=== PATIENT | male | born 1940 | race Caucasian/White ===

== ENCOUNTER 2017-12-17 13:17 | Inpatient (IN) | payer MEDICARE ==
[~2017-12-17] VITALS: Ht 167.6 cm; Wt 68.2 kg
[2017-12-17] MEDS ORDERED: NS IV 500 ML 500 ML IV ONE (13:30)
[2017-12-17 13:44] LABS: BASOPHILS # (AUTO) 0.1 10^3/uL (0.0-0.1); BASOPHILS % (AUTO) 0 % (0-10); EOSINOPHILS # (AUTO) 0.1 10^3/uL (0.0-0.3); EOSINOPHILS % (AUTO) 0 % (0-10); HEMATOCRIT 39 % (40-54); HEMOGLOBIN 13.9 G/DL (13.3-17.7); LYMPHOCYTES # (AUTO) 3.8 X 10^3 (1.0-4.0); LYMPHOCYTES % (AUTO) 10 % (12-44); MEAN CORPUSCULAR HEMOGLOBIN 30 PG (25-34); MEAN CORPUSCULAR HGB CONC 36 G/DL (32-36); MEAN CORPUSCULAR VOLUME 85 FL (80-99); MEAN PLATELET VOLUME 11.4 FL (7.4-10.4); MONOCYTES # (AUTO) 17.5 X 10^3 (0.0-1.0); MONOCYTES % (AUTO) 45 % (0-12); NEUTROPHILS # (AUTO) 17.7 X 10^3 (1.8-7.8); NEUTROPHILS % (AUTO) 45 % (42-75); PLATELET COUNT 498 10^3/uL (130-400); RED BLOOD COUNT 4.62 10^6/uL (4.35-5.85); RED CELL DISTRIBUTION WIDTH 14.6 % (10.0-14.5)
[2017-12-17 13:45] LABS: WHITE BLOOD COUNT 39.3 10^3/uL (4.3-11.0)
[2017-12-17] MEDS ORDERED: RT-ALBUTEROL/IPRATROPIUM 3 ML (DUONEB) VIAL INH ONE (13:45)
[2017-12-17] MEDS ORDERED: METF500T5 PO (13:46)
[2017-12-17] MEDS ORDERED: INSU100I10 SQ (13:46)
[2017-12-17] MEDS ORDERED: PIOG45TA65 PO (13:46)
[2017-12-17] MEDS ORDERED: GLIM4TAB PO (13:46)
[2017-12-17] MEDS ORDERED: ONDA4TAB11 PO (13:46)
[2017-12-17] MEDS ORDERED: FLUT16SP22 (13:46)
[2017-12-17] MEDS ORDERED: MELO15TA39 (13:46)
[2017-12-17] MEDS ORDERED: TRAM50TA2 (13:46)
[2017-12-17 13:58] LABS: BAND NEUTROPHILS 11 %; LYMPHOCYTES % (MANUAL) 4 %; MONOCYTES % (MANUAL) 41 %; NEUTROPHILS % (MANUAL) 44 %; RBC MORPH NORMAL
[2017-12-17 14:02] LABS: ALANINE AMINOTRANSFERASE 8 U/L (0-55); ALKALINE PHOSPHATASE 97 U/L (40-136); BILIRUBIN,TOTAL 0.5 MG/DL (0.1-1.0); BUN/CREATININE RATIO 20; CALCIUM 9.8 MG/DL (8.5-10.1); CARBON DIOXIDE 25 MMOL/L (21-32); CHLORIDE 94 MMOL/L (98-107); CREATININE SERUM 1.08 MG/DL (0.60-1.30); GFR ESTIMATED > 60; GLUCOSE 280 MG/DL (70-105); POTASSIUM 3.9 MMOL/L (3.6-5.0); SODIUM 133 MMOL/L (135-145); TOTAL PROTEIN 8.1 GM/DL (6.4-8.2)
--- NOTE | 2017-12-17 14:05 | Diagnostic Imaging Report ---
INDICATION: Shortness of breath. COMPARISON: None. FINDINGS: Single view of the chest demonstrates mass infiltrate in the right hilum. Left lung is clear. The heart is prominent without pulmonary edema. There is no pneumothorax. Osseous structures are age-appropriate. IMPRESSION: Mass/infiltrate right hilum. CT chest recommended for further evaluation. Dictated by: Dictated on workstation # [id number]
--- NOTE | 2017-12-17 14:09 | ED Respiratory ---
General Chief Complaint: Respiratory Problems Stated Complaint: SOB, RATTLE IN CHEST, Nursing Triage Note: ARRIVED VIA AMB TO ROOM 03 WITH FAMILY WITHOUT DIFFIUCLTY. PT HAS HAD SOME DIFFICULTY CLEARING HIS THROAT IN THE MORNINGS BUT TODAY HE WOKE UP SOA AND UNABLE TO CLEAR HIS THROAT. Source: patient Exam Limitations: no limitations History of Present Illness Date Seen by Provider: Dec 17, 2017 Time Seen by Provider: 13:25 Initial Comments Here with report of difficulty breathing. States he is having difficulty clearing his throat and woke up short of air this morning. This is not typical for him. He does have some problems with clearing his throat but usually is always able to clear it. Today he has been unable to do so. He arrives with multiple family members. His daughter, who is a nurse, explains that the patient has been in the process of her workup for elevated white blood cell count. They are not sure what that is related to. He has had bone marrow biopsy. Timing/Duration: this morning, getting worse Severity: moderate Prior Episodes/Possible Cause: no prior episodes Modifying Factors: Worse With Activity; Improves With Oxygen, Improves With Rest Associated Symptoms: No chest pain/soreness; cough; No dizziness, No fever/ chills; shortness of breath; No sinus infection; wheezing Allergies and Home Medications Allergies Coded Allergies: No Known Drug Allergies (Unverified , 12/17/17) Patient Home Medication List Home Medication List Reviewed: Yes Review of Systems Constitutional: see HPI; No chills, No fever EENTM: no symptoms reported Respiratory: no symptoms reported Cardiovascular: No chest pain, No edema Gastrointestinal: No abdominal pain, No nausea, No vomiting Genitourinary: no symptoms reported Musculoskeletal: no symptoms reported Skin: no symptoms reported All Other Systems Reviewed Negative Unless Noted: Yes Past Jdvthxy-Ogglvq-Jsqcxi Hx Past Med/Social Hx: Reviewed Nursing Past Med/Soc Hx Patient Social History Alcohol Use: Denies Use Recreational Drug Use: No Smoking Status: Former Smoker Recent Foreign Travel: No Contact w/Someone Who Travel: No Recent Infectious Disease Expo: No Recent Hopitalizations: No Past Medical History Surgeries: No Respiratory: No Cardiac: Yes High Cholesterol Neurological: No Genitourinary: No Gastrointestinal: No Musculoskeletal: No Endocrine: Yes Diabetes, Insulin dep HEENT: No Cancer: No Integumentary: No Blood Disorders: Yes (HIGH WBC ET SEEING DR ELIAS FOR) Family Medical History Reviewed Nursing Family Hx Physical Exam Vital Signs Vital Signs - First Documented 12/17/17 12/17/17 13:17 13:30 Temp 97.1 Pulse 108 Resp 20 B/P (MAP) 157/98 (117) Pulse Ox 89 O2 Delivery Room Air O2 Flow Rate 2.00 Capillary Refill : Less Than 3 Seconds General Appearance: WD/WN, no apparent distress HEENT: PERRL/EOMI, pharynx normal Neck: full range of motion, supple Respiratory: decreased breath sounds, crackles, wheezing Cardiovascular: no murmur, tachycardia Gastrointestinal: non tender, soft Extremities: non-tender, normal inspection Neurologic/Psychiatric: alert, oriented x 3 Skin: normal color, warm/dry Focused Exam Lactate Level 12/17/17 13:30: Lactic Acid Level 1.70 Lactic Acid Level Laboratory Tests Test 12/17/17 13:30 Lactic Acid Level 1.70 MMOL/L (0.50-2.00) Progress/Results/Core Measures Suspected Sepsis Recent Fever Within 48 Hours: No Infection Criteria Present: Suspected New Infection New/Unexplained Altered Menta: No Sepsis Screen: No Definite Risk SIRS Temperature:97.1 Pulse: 108 Respiratory Rate: 20 Laboratory Tests 12/17/17 13:30: White Blood Count 39.3*H Blood Pressure 157 /98 Mean: 117 12/17/17 13:30: Lactic Acid Level 1.70 Laboratory Tests 12/17/17 13:30: Creatinine 1.08, INR Comment 1.1, Platelet Count 498H, Total Bilirubin 0.5 Results/Orders Lab Results Laboratory Tests Test 12/17/17 13:30 12/17/17 14:08 Range/Units White Blood Count 39.3 *H 4.3-11.0 10^3/uL Red Blood Count 4.62 4.35-5.85 10^6/uL Hemoglobin 13.9 13.3-17.7 G/DL Hematocrit 39 L 40-54 % Mean Corpuscular Volume 85 80-99 FL Mean Corpuscular Hemoglobin 30 25-34 PG Mean Corpuscular Hemoglobin Concent 36 32-36 G/DL Red Cell Distribution Width 14.6 H 10.0-14.5 % Platelet Count 498 H 130-400 10^3/uL Mean Platelet Volume 11.4 H 7.4-10.4 FL Neutrophils (%) (Auto) 45 42-75 % Lymphocytes (%) (Auto) 10 L 12-44 % Monocytes (%) (Auto) 45 H 0-12 % Eosinophils (%) (Auto) 0 0-10 % Basophils (%) (Auto) 0 0-10 % Neutrophils # (Auto) 17.7 H 1.8-7.8 X 10^3 Lymphocytes # (Auto) 3.8 1.0-4.0 X 10^3 Monocytes # (Auto) 17.5 H 0.0-1.0 X 10^3 Eosinophils # (Auto) 0.1 0.0-0.3 10^3/uL Basophils # (Auto) 0.1 0.0-0.1 10^3/uL Neutrophils % (Manual) 44 % Lymphocytes % (Manual) 4 % Monocytes % (Manual) 41 % Band Neutrophils 11 % Blood Morphology Comment NORMAL Prothrombin Time 14.3 12.2-14.7 SEC INR Comment 1.1 0.8-1.4 Activated Partial Thromboplast Time 46 H 24-35 SEC D-Dimer 1.63 H 0.00-0.49 UG/ML Sodium Level 133 L 135-145 MMOL/L Potassium Level 3.9 3.6-5.0 MMOL/L Chloride Level 94 L 98-107 MMOL/L Carbon Dioxide Level 25 21-32 MMOL/L Anion Gap 14 5-14 MMOL/L Blood Urea Nitrogen 22 H 7-18 MG/DL Creatinine 1.08 0.60-1.30 MG/DL Estimat Glomerular Filtration Rate > 60 BUN/Creatinine Ratio 20 Glucose Level 280 H 70-105 MG/DL Lactic Acid Level 1.70 0.50-2.00 MMOL/L Calcium Level 9.8 8.5-10.1 MG/DL Total Bilirubin 0.5 0.1-1.0 MG/DL Aspartate Amino Transf (AST/SGOT) 22 5-34 U/L Alanine Aminotransferase (ALT/SGPT) 8 0-55 U/L Alkaline Phosphatase 97 40-136 U/L Troponin I < 0.30 <0.30 NG/ML Total Protein 8.1 6.4-8.2 GM/DL Albumin 4.0 3.2-4.5 GM/DL Blood Gas Puncture Site R BRACHIAL Blood Gas Patient Temperature 96.9 Arterial Blood pH 7.41 7.37-7.43 Arterial Blood Partial Pressure CO2 42 35-45 MMHG Arterial Blood Partial Pressure O2 64 L 79-93 MMHG Arterial Blood HCO3 26 23-27 MMOL/L Arterial Blood Total CO2 27.5 21.0-31.0 MMOL/L Arterial Blood Oxygen Saturation 93 L 94-100 % Arterial Blood Base Excess 1.8 -2.5-2.5 MMOL/L South Test POSITIVE Blood Gas Ventilator Setting NO Blood Gas Inspired Oxygen 3 My Orders Orders - JERROD YOUNG MD Cbc With Automated Diff (12/17/17 13:30) Comprehensive Metabolic Panel (12/17/17 13:30) Lactic Acid Analyzer (12/17/17 13:30) Blood Culture (12/17/17 13:30) Sputum Culture (12/17/17 13:30) Protime With Inr (12/17/17 13:30) Partial Thromboplastin Time (12/17/17 13:30) Chest 1 View, Ap/Pa Only (12/17/17 13:30) O2 (12/17/17 13:30) Saline Lock/Iv-Start (12/17/17 13:30) Ekg Tracing (12/17/17 13:30) Troponin I (12/17/17 13:30) Vital Signs Adult Sepsis Patie Q15M (12/17/17 13:30) Remove Rings In Anticipation O (12/17/17 13:30) Fibrin Degradation Products (12/17/17 13:30) Saline Lock/Iv-Start (12/17/17 13:30) Ns Iv 500 Ml (Sodium Chloride 0.9%) (12/17/17 13:30) Albuterol/Ipra Inhalation Soln (Duoneb I (12/17/17 13:45) Svn Small Volume Nebulizer (12/17/17 13:37) Manual Differential (12/17/17 13:30) Arterial Blood Gas (12/17/17 14:09) Ct Angio Chest W (12/17/17 14:12) Iohexol Injection (Omnipaque 350 Mg/Ml 1 (12/17/17 14:15) Ns (Ivpb) (Sodium Chloride 0.9% Ivpb Bag (12/17/17 14:15) Arterial Blood Draw (12/17/17 ) Dexamethasone Injection (Decadron Inject (12/17/17 15:45) Piperacillin/Tazobactam (Zosyn Vial) (12/17/17 15:45) Medications Given in ED Current Medications Medications Dose Ordered Sig/Teodoro Route Start Time Stop Time Status Last Admin Dose Admin Albuterol/ Ipratropium 3 ml ONCE ONCE INH 12/17/17 13:45 12/17/17 13:46 DC 12/17/17 13:53 3 ML Dexamethasone Sodium Phosphate 10 mg ONCE ONCE IV 12/17/17 15:45 12/17/17 15:46 DC 12/17/17 15:53 10 MG Iohexol 150 ml ONCE ONCE IV 12/17/17 14:15 12/17/17 14:17 DC 12/17/17 14:28 125 ML Piperacillin Sod/ Tazobactam Sod 3.375 gm/Dextrose 100 ml @ 200 mls/hr ONCE ONCE IV 12/17/17 15:45 12/17/17 16:14 12/17/17 15:53 200 MLS/HR Sodium Chloride 100 ml ONCE ONCE IV 12/17/17 14:15 12/17/17 14:17 DC 12/17/17 14:28 100 ML Sodium Chloride 500 ml @ 0 mls/hr Q0M ONCE IV 12/17/17 13:30 12/17/17 13:33 DC 12/17/17 13:58 500 MLS/HR Vital Signs/I&O 12/17/17 12/17/17 12/17/17 13:17 13:30 13:58 Temp 97.1 Pulse 108 Resp 20 B/P (MAP) 157/98 (117) Pulse Ox 89 92 O2 Delivery Room Air Nasal Cannula Nasal Cannula O2 Flow Rate 2.00 3.00 Capillary Refill : Less Than 3 Seconds Blood Pressure Mean: 117 Progress Note : Progress Note Seen and treated. IV, labs, EKG and chest x-ray ordered. Blood cultures and lactic acid ordered. Normal saline 500 mL bolus. Monitor patient. 1405: ABG ordered as patient still remains at 93-94 percent on 3 L. Patient does not normally take oxygen. Anticipate CT scan pending chemistries. 1520: CT angiogram of the chest was ordered and is complete. There is hilar mass is concerning for neoplasm with some evidence of possible infiltrate concerning for pneumonia. I did discuss this at length with the family. Patient will be admitted to the hospital for further evaluation and treatment. I did discuss the case with Dr. CAMPBELL at this time and he accepts patient for admission, inpatient status. We will initiate Decadron 10 mg IV now and continue this twice a day. Also will initiate antibiotic treatment with Zosyn 3.375 g IV. I did discuss the case with Dr. Dumont at 1528. He accepts patient in consult. We did discuss placements and patient will go to fourth floor at this time with anticipation of bronchoscopy early to mid week depending on patient's response to medications. I did discuss all findings concerns with full family that were available here at 1550. All questions answered. Patient to be admitted to [facility] unit. ECG Initial ECG Impression Date: Dec 17, 2017 Initial ECG Impression Time: 13:49 Initial ECG Rate: 103 Initial ECG Rhythm: S.Tach Comment Sinus tachycardia with left atrial abnormality. Left anterior fascicular block. No evidence of ST elevation NM. No previous Zamora comparison. Interpreted by me. Diagnostic Imaging Diagonstic Imaging: Xray Plain Films/CT/US/NM/MRI: chest Comments VIA [facility]. [place], [place] NAME: [facility] REC#: [id number] PT STATUS: REG ER : 1940 PHYSICIAN: JERROD YOUNG MD ADMIT DATE: 12/17/17/ER Draft Date of Exam:12/17/17 CHEST 1 VIEW, AP/PA ONLY INDICATION: Shortness of breath. COMPARISON: None. FINDINGS: Single view of the chest demonstrates mass infiltrate in the right hilum. Left lung is clear. The heart is prominent without pulmonary edema. There is no pneumothorax. Osseous structures are age-appropriate. IMPRESSION: Mass/infiltrate right hilum. CT chest recommended for further evaluation. Dictated on workstation # [id number] Dict: 12/17/17 1359 Trans: 12/17/17 1404 [id number] Interpreted by: MEKHI NICHOLSON Electronically signed by: Diagonstic Imaging: CT Plain Films/CT/US/NM/MRI: chest Comments NAME: JAIMIE [facility] REC#: [id number] PT STATUS: REG ER : 1940 PHYSICIAN: JERROD YOUNG MD ADMIT DATE: 12/17/17/ER Draft Date of Exam:12/17/17 CT ANGIO CHEST W PROCEDURE: CT angiography of the chest with contrast. TECHNIQUE: Multiple contiguous axial images were obtained through the chest after uneventful bolus administration of intravenous contrast. Reconstructed CTA MIP acquisitions were also performed. INDICATION: Cough, wheezing. COMPARISON: None. FINDINGS: There is a moderate-sized irregular spiculated mass in the right hilum which encases the right mainstem bronchus distally. There is some encasement of the lobar pulmonary arterial branches. Approximate size is 5 x 7 cm. There are few prominent lymph nodes in the mediastinum. The largest pretracheal node measuring 15 mm in cross-section. There are few tiny nodules in the right lung base which could be postobstructive. There is small effusion in the right lung base as well. The left lung is clear. There is no pneumothorax. There is no pulmonary embolism or acute aortic pathology. IMPRESSION: 1. 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 This may be biopsied bronchoscopically. 2. No pulmonary embolism identified. 3. Tiny nodules in the right lung base either neoplastic or secondary to postobstructive inflammation and/or pneumonia. Dictated on workstation # [id number] Dict: 12/17/17 1447 Trans: 12/17/17 1459 [id number] Interpreted by: MEKHI NICHOLSON Electronically signed by: Departure Communication (Admissions) Time/Spoke to Admitting Phy: 15:20 Time/Spoke to Consulting Phy: 15:28 Impression Primary Impression: Mass of right lung Additional Impression: Right middle lobe pneumonia Qualified Codes: J18.1 - Lobar pneumonia, unspecified organism Disposition: ADMITTED INPATIENT Condition: Stable Admissions Decision to Admit Reason: Admit from ER (General) Decision to Admit/Date: Dec 17, 2017 Time/Decision to Admit Time: 15:20 Departure-Patient Inst. Referrals: WAI HARMON DO (PCP) Primary Care Physician JERROD YOUNG MD Dec 17, 2017 14:09
[2017-12-17 14:15] LABS: ABG BASE EXCESS 1.8 MMOL/L (-2.5-2.5); ABG OXYGEN SATURATION 93 % (94-100); ABG PCO2 42 MMHG (35-45); ABG PH 7.41 (7.37-7.43); ABG PO2 64 MMHG (79-93); ABG TCO2 27.5 MMOL/L (21.0-31.0)
[2017-12-17] MEDS ORDERED: NS 100 ML (IVPB) BAG IV ONE (14:15)
[2017-12-17] MEDS ORDERED: IOHEXOL 350 MG/ML 150 ML (OMNIPAQUE 350) VIAL IV ONE (14:15)
[2017-12-17 14:16] LABS: ALLENS TEST POSITIVE; INSPIRED O2 3; PATIENT TEMP 96.9; VENTILATOR NO
[2017-12-17 14:40] LABS: FIBRIN DEGRADATION PRODUCTS 1.63 UG/ML (0.00-0.49); INR 1.1 (0.8-1.4); PROTHROMBIN TIME PATIENT 14.3 SEC (12.2-14.7)
--- NOTE | 2017-12-17 14:59 | Diagnostic Imaging Report ---
PROCEDURE: CT angiography of the chest with contrast. TECHNIQUE: Multiple contiguous axial images were obtained through the chest after uneventful bolus administration of intravenous contrast. Reconstructed CTA MIP acquisitions were also performed. INDICATION: Cough, wheezing. COMPARISON: None. FINDINGS: There is a moderate-sized irregular spiculated mass in the right hilum which encases the right mainstem bronchus distally. There is some encasement of the lobar pulmonary arterial branches. Approximate size is 5 x 7 cm. There are few prominent lymph nodes in the mediastinum. The largest pretracheal node measuring 15 mm in cross-section. There are few tiny nodules in the right lung base which could be postobstructive. There is small effusion in the right lung base as well. The left lung is clear. There is no pneumothorax. There is no pulmonary embolism or acute aortic pathology. IMPRESSION: 1. 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 This may be biopsied bronchoscopically. 2. No pulmonary embolism identified. 3. Tiny nodules in the right lung base either neoplastic or secondary to postobstructive inflammation and/or pneumonia. Dictated by: Dictated on workstation # [id number]
[2017-12-17] MEDS ORDERED: PIPERACILLIN/TAZOBACTAM 3.375 GM in D5W 100 ML IVPB 100 ML IV ONE (15:45)
[2017-12-17] MEDS ORDERED: DEXAMETHASONE 10 MG/ML (DECADRON) 1 ML VIAL IV ONE (15:45)
[2017-12-17 16:48] VITALS: BP 154/74
[2017-12-17] MEDS: NS IV 1000 ML 1,000 ML IV SCH (16:59)
[2017-12-17] MEDS ORDERED: ONDANSETRON 4 MG/2 ML (SDV) Z0FRAN IVP PRN (17:00)
--- NOTE | 2017-12-17 17:02 | Pulmonary Consultation ---
History of Present Illness History of Present Illness Date of Consultation 12/17/17 16:56 Time Seen by Provider: 16:56 Date of Admission History of Present Illness 77yo presented to ED secondary to worsening SOB waking him up from sleep, and nonproductive cough. No prior episodes like this in the past. No hemoptysis. PT has recently seen oncology secondary to leukocytosis and is s/p bone marrow bx. CT scan on admission shows large right hilar mass with mediastinal lymphadenopathy. Pt was placed on Zosyn and admitted to 4th floor. I am consulted for pulmonary management. Allergies and Home Medications Allergies Coded Allergies: No Known Drug Allergies (Unverified , 12/17/17) Home Medications Cetirizine HCl 10 Mg Tablet, 10 MG PO DAILY, (Reported) Fluticasone Propionate 16 Gm [place].susp, 2 SPRAYS NA DAILY, (Reported) Glimepiride 4 Mg Tablet, 4 MG PO DAILY, (Reported) Insulin Glargine,Hum.rec.anlog 100 Unit/1 Ml Insuln.pen, 12 UNITS SQ BID, ( Reported) Ketorolac Tromethamine 10 Mg Tablet, 10 MG PO Q6H PRN for PAIN-MILD TO MODERATE, (Reported) Metformin HCl 500 Mg Tablet, 1,000 MG PO BID, (Reported) Ondansetron 4 Mg Tab.rapdis, 4 MG PO Q8H PRN for NAUSEA/VOMITING-1ST LINE, ( Reported) Pioglitazone HCl 45 Mg Tablet, 45 MG PO DAILY, (Reported) Propylene Glycol/Peg 400/Pf 1 Each Droperette, 1 EACH OU DAILY PRN for DRY EYES, (Reported) Simvastatin 40 Mg Tablet, 40 MG PO HS, (Reported) Past Qenlapq-Ktjxwb-Kaduwj Hx Past Med/Social Hx: Reviewed Nursing Past Med/Soc Hx Patient Social History Alcohol Use: Denies Use Recreational Drug Use: No Smoking Status: Former Smoker Type Used: Cigarettes Former Smoker, Quit: Jun 20, 1997 Recent Foreign Travel: No Contact w/Someone Who Travel: No Recent Infectious Disease Expo: No Recent Hopitalizations: No Past Medical History Surgeries: No Respiratory: No Cardiac: Yes High Cholesterol Neurological: No Genitourinary: No Gastrointestinal: No Musculoskeletal: No Endocrine: Yes Diabetes, Insulin dep HEENT: No Cancer: No Integumentary: No Blood Disorders: Yes (HIGH WBC ET SEEING DR ELIAS FOR) Family Medical History Reviewed Nursing Family Hx Review of Systems Time Seen by Provider: 06:56 Constitutional: Fever, Chills, Sweats, Weakness, Malaise Eyes: No: Pain, Vision change, Conjunctivae inflammation, Eyelid inflammation, Other, Redness Respiratory: Cough, Dry, Shortness of breath, SOB with excertion Cardiovascular: Orthopnea, Paroxysmal Noc. Dyspnea, Lt Headedness Gastrointestinal: Constipation; No: Nausea, Vomiting, Abdominal Pain, Diarrhea , Melena, Hematochezia, Other Neurological: Weakness Exam Exam Vital Signs Date Time Temp Pulse Resp B/P (MAP) Pulse Ox O2 Delivery O2 Flow Rate FiO2 12/17/17 16:48 98.7 101 20 154/74 (100) 92 Nasal Cannula 4.00 12/17/17 16:14 88 16 133/82 94 Room Air 12/17/17 13:58 92 Nasal Cannula 3.00 12/17/17 13:30 Nasal Cannula 2.00 12/17/17 13:17 97.1 108 20 157/98 (117) 89 Room Air General Appearance: No Apparent Distress, Anxious HEENT: PERRL/EOMI, Pharynx Normal Neck: Full Range of Motion, Non Tender, Supple Respiratory: Chest Non Tender, No Respiratory Distress, Decreased Breath Sounds Cardiovascular: Regular Rate, Rhythm, No Edema, No Gallop Capillary Refill: Less Than 3 Seconds Gastrointestinal: non tender, soft Extremity: Normal Capillary Refill, Normal Inspection Neurologic/Psychiatric: Alert, Oriented x3 Skin: Normal Color, Warm/Dry Results Lab Laboratory Tests 12/17/17 13:30 Assessment/Plan Assessment/Plan Post obstructive pneumonia -Continue Zosyn -IVF -SVNS, oxygen Right hilar mass with MLA -Will plan for bronchoscopy with EBUS this week. SCOTTIE TOMLIN DO Dec 17, 2017 17:02
[2017-12-17] MEDS ORDERED: RT-ALBUTEROL/IPRATROPIUM 3 ML (DUONEB) VIAL INH SCH (17:15)
[2017-12-17] MEDS ORDERED: SIMV40TA4 PO (17:39)
[2017-12-17] MEDS ORDERED: EYEL1TOW2 TP (17:39)
[2017-12-17] MEDS ORDERED: CETI10TA20 PO (17:39)
[2017-12-17] MEDS ORDERED: PROP1DRO7 OU (17:48)
[2017-12-17] MEDS ORDERED: RT-ALBUTEROL/IPRATROPIUM 3 ML (DUONEB) VIAL ONE (18:36)
[2017-12-17] MEDS ORDERED: RT-ALBUTEROL/IPRATROPIUM 3 ML (DUONEB) VIAL INH PRN (19:00)
[2017-12-17] MEDS: RT-ALBUTEROL/IPRATROPIUM 3 ML (DUONEB) VIAL INH SCH (19:00)
[2017-12-17] MEDS ORDERED: inSUlin ASPART (NovoLOG) 1 UNIT/0.01 ML (CHARGE PER UNIT) SC SCH (19:30)
[2017-12-17] MEDS ORDERED: KETO10TA PO (19:36)
[2017-12-17 19:50] VITALS: BP 133/60
[2017-12-17] MEDS: fentaNYL INJECTION 100 MCG/2 ML AMP IVP PRN (19:56)
[2017-12-17] MEDS: DEXAMETHASONE 4 MG/ML SDV (DECADRON) IV SCH (21:18)
[2017-12-17] MEDS: PIPERACILLIN/TAZO 3.375 GM/D5W 100 ML IV SCH ×2 (21:18)
[2017-12-18 00:18] VITALS: BP 131/73
[2017-12-18] MEDS: RT-ALBUTEROL/IPRATROPIUM 3 ML (DUONEB) VIAL INH SCH ×4 (01:35→20:21)
[2017-12-18 04:31] VITALS: BP 129/64
[2017-12-18 05:15] LABS: BASOPHILS # (AUTO) 0.1 10^3/uL (0.0-0.1); BASOPHILS % (AUTO) 0 % (0-10); EOSINOPHILS % (AUTO) 0 % (0-10); HEMATOCRIT 34 % (40-54); HEMOGLOBIN 11.7 G/DL (13.3-17.7); LYMPHOCYTES # (AUTO) 1.5 X 10^3 (1.0-4.0); LYMPHOCYTES % (AUTO) 4 % (12-44); MEAN CORPUSCULAR HEMOGLOBIN 29 PG (25-34); MEAN CORPUSCULAR HGB CONC 35 G/DL (32-36); MEAN CORPUSCULAR VOLUME 85 FL (80-99); MEAN PLATELET VOLUME 11.4 FL (7.4-10.4); MONOCYTES % (AUTO) 23 % (0-12); NEUTROPHILS # (AUTO) 26.1 X 10^3 (1.8-7.8); NEUTROPHILS % (AUTO) 73 % (42-75); PLATELET COUNT 444 10^3/uL (130-400); RED BLOOD COUNT 4.01 10^6/uL (4.35-5.85); RED CELL DISTRIBUTION WIDTH 14.6 % (10.0-14.5)
[2017-12-18 05:19] LABS: WHITE BLOOD COUNT 35.6 10^3/uL (4.3-11.0)
[2017-12-18 05:38] LABS: ALANINE AMINOTRANSFERASE 6 U/L (0-55); ALBUMIN 3.3 GM/DL (3.2-4.5); ALKALINE PHOSPHATASE 73 U/L (40-136); BILIRUBIN,TOTAL 0.4 MG/DL (0.1-1.0); BUN/CREATININE RATIO 23; CALCIUM 8.5 MG/DL (8.5-10.1); CARBON DIOXIDE 21 MMOL/L (21-32); CHLORIDE 98 MMOL/L (98-107); CREATININE SERUM 0.96 MG/DL (0.60-1.30); GFR ESTIMATED > 60; GLUCOSE 375 MG/DL (70-105); POTASSIUM 4.5 MMOL/L (3.6-5.0); SODIUM 132 MMOL/L (135-145); TOTAL PROTEIN 6.3 GM/DL (6.4-8.2)
[2017-12-18] MEDS: PIPERACILLIN/TAZO 3.375 GM/D5W 100 ML IV SCH ×6 (05:45→21:17)
[2017-12-18] MEDS: NS IV 1000 ML 1,000 ML IV SCH ×2 (05:45→13:06)
[2017-12-18] MEDS: inSUlin ASPART (NovoLOG) 1 UNIT/0.01 ML (CHARGE PER UNIT) SC SCH ×4 (05:46→21:28)
[2017-12-18] MEDS: fentaNYL INJECTION 100 MCG/2 ML AMP IVP PRN (05:48)
[2017-12-18 08:00] VITALS: BP 128/61
[2017-12-18] MEDS: DEXAMETHASONE 4 MG/ML SDV (DECADRON) IV SCH ×2 (08:21→21:16)
--- NOTE | 2017-12-18 09:25 | Diagnostic Imaging Report ---
INDICATION: Pneumonia. Comparison made with prior examination from 12/17/2017. FINDINGS: There is cardiomegaly. There is a right hilar mass with some perihilar atelectasis and/or pneumonitis. There is no pleural effusion or pneumothorax. The mediastinum is unremarkable. IMPRESSION: Note is again made of right hilar mass with some right perihilar atelectasis and/or pneumonitis. Cardiomegaly. Dictated by: Dictated on workstation # [id number]
--- NOTE | 2017-12-18 10:36 | History & Physical-Hospitalist ---
History of Present Illness HPI/Chief Complaint CC: Fever with dyspnea HPI: This is a 77-year-old white male clinic patient of Dr. Garcia who presented to the ER with shortness of breath and decline status. He was recently seen by Dr. Wilkinson and a bone marrow biopsy was performed this past Tuesday due to severe leukocytosis of 35,000 and results are pending. He reports that he had had a cough from allergies but that had progressed to the point he was having difficulty breathing last night. Elevated d-dimer was noted on workup so CT angiogram of the chest showed right hilar mass with mediastinal nodes suspicious for neoplastic process. Dr. Dumont's been consulted and he will be performing a bronchoscopy to evaluate definitive source of the hilar mass. He reports that he had a left rotator cuff injury was seen by Dr. Fleming in October but then everything progressed on the workup revealing elevated leukocyte count and establishment with Dr. Wilkinson then it is progressed to the situation today. 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 Source: patient Exam Limitations: no limitations Date Seen 12/18/17 Time Seen by Provider: 10:00 Attending Physician Thomas Scott MD PCP No,Local Physician Referring Physician Date of Admission Dec 17, 2017 at 15:35 Home Medications & Allergies Home Medications Reviewed patient Home Medication Reconciliation performed by pharmacy medication reconciliations civil design technician and/or nursing. Patients Allergies have been reviewed. Allergies Allergies Coded Allergies No Known Drug Allergies (Unverified12/17/17) Past Raaoszm-Syqejy-Ixxhlu Hx Past Med/Social Hx: Reviewed Nursing Past Med/Soc Hx, Reviewed and Corrections made Patient Social History Marrital Status: Employed/Student: employed ([employer]) Alcohol Use: Denies Use Recreational Drug Use: No Smoking Status: Former Smoker Former Smoker, Quit: Jun 20, 1997 Type Used: Cigarettes Physical Abuse Screen: No Sexual Abuse: No Recent Foreign Travel: No Contact w/other who traveled: No Recent Hopitalizations: No Recent Infectious Disease Expo: No Seasonal Allergies Seasonal Allergies: Yes Past Medical History Cardiac: High Cholesterol Endocrine: Diabetes, Insulin dep Are Your Blood Sugars Over 250: No History of Blood Disorders: Yes (HIGH WBC ET SEEING DR WILKINSON FOR) Family History Reviewed Nursing Family Hx Diabetes mellitus 19 FATHER FH: colon cancer 19 MOTHER Myocardial infarction 19 FATHER Diabetes Review of Systems Constitutional: see HPI, dizziness, fever, malaise, weakness EENTM: no symptoms reported Respiratory: cough, dyspnea on exertion, short of breath, wheezing Cardiovascular: no symptoms reported Gastrointestinal: no symptoms reported Genitourinary: no symptoms reported Musculoskeletal: joint pain (left shoulder) Skin: no symptoms reported Psychiatric/Neurological: No Symptoms Reported All Other Systems Reviewed Negative Unless Noted: Yes Physical Exam Physical Exam Vital Signs Vital Signs - First Documented 12/17/17 12/17/17 13:17 13:30 Temp 97.1 Pulse 108 Resp 20 B/P (MAP) 157/98 (117) Pulse Ox 89 O2 Delivery Room Air O2 Flow Rate 2.00 Capillary Refill : Less Than 3 Seconds General Appearance: No Apparent Distress, WD/WN, Chronically ill Eyes: Bilateral Eye Normal Inspection, Bilateral Eye PERRL HEENT: PERRL/EOMI, Normal ENT Inspection, Pharynx Normal Neck: Full Range of Motion, Normal Inspection, Non Tender, Supple, Carotid Bruit Respiratory: Chest Non Tender, No Accessory Muscle Use, No Respiratory Distress , Crackles, Decreased Breath Sounds, Wheezing Cardiovascular: Regular Rate, Rhythm, No Edema, No Gallop, No JVD, No Murmur, Normal Peripheral Pulses Gastrointestinal: Normal Bowel Sounds, No Organomegaly, No Pulsatile Mass, Non Tender, Soft Back: Normal Inspection, No CVA Tenderness, No Vertebral Tenderness Extremity: Normal Capillary Refill, Normal Inspection, Normal Range of Motion, Non Tender, No Calf Tenderness, No Pedal Edema Neurologic/Psychiatric: Alert, Oriented x3, No Motor/Sensory Deficits, Normal Mood/Affect Skin: Normal Color, Warm/Dry Lymphatic: No Adenopathy Results Results/Procedures Labs Laboratory Tests 12/17/17 13:30 12/18/17 04:48 Patient resulted labs reviewed. Assessment/Plan Admission Diagnosis Right hilar mass with postobstructive pneumonia Severe leukocytosis status post bone marrow biopsy this past week by Dr. Mosquera Diabetes mellitus Admission Status: Inpatient Order (span 2 midnights) Reason for Inpatient Admission: Post obstructive pneumonia with elevated wbc will require at least 3 days inpt Assessment and Plan Monitor labs Maintain nebulizers and oxygen Maintain empiric antibiotics Appreciate Dr. Dumont consultation for bronchoscopy for biopsy of right hilar mass that appears to be suspicious for neoplastic process Home medication Pain control Diagnosis/Problems Diagnosis/Problems (1) Right middle lobe pneumonia Status: Acute Qualifiers: Pneumonia type: due to unspecified organism Qualified Codes: J18.1 - Lobar pneumonia, unspecified organism (2) Mass of right lung Status: Acute (3) Leukocytosis Status: Acute Assessment & Plan: s/p BM biopsy Dr Wilkinson this past week Qualifiers: Leukocytosis type: unspecified Qualified Codes: D72.829 - Elevated white blood cell count, unspecified (4) Diabetes mellitus Status: Chronic Qualifiers: Diabetes mellitus type: type 2 Diabetes mellitus long term care pharmacist insulin use: with custodial use Diabetes mellitus complication status: without complication Qualified Codes: E11.9 - Type 2 diabetes mellitus without complications; 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
[2017-12-18] MEDS ORDERED: ACETAMINOPHEN 500 MG TAB (TYLENOL) PO PRN (11:30)
[2017-12-18] MEDS ORDERED: ALPRAZolam 0.25 MG (XANAX) TAB PO PRN (11:30)
[2017-12-18] MEDS ORDERED: POLYETHYLENE GLYCOL 17 GM (MIRALAX) PACK PO PRN (11:30)
[2017-12-18] MEDS ORDERED: ONDANSETRON 4 MG (ZOFRAN) ORAL DISSOLVE TAB PO PRN (11:30)
[2017-12-18 12:00] VITALS: BP 145/67
[2017-12-18] MEDS ORDERED: ARTIFICAL TEARS 0.4 ML UNIT DOSE (REFRESH PLUS) OU PRN (12:30)
[2017-12-18 15:35] VITALS: BP 160/69
[2017-12-18] MEDS: IBUPROFEN 600 MG (MOTRIN) TAB PO PRN ×2 (15:57→21:15)
[2017-12-18] MEDS: HYDROcodone/APAP 5 MG/325 MG (LORTAB) TAB PO PRN ×2 (16:15→16:29)
[2017-12-18 19:55] VITALS: BP 121/56
[2017-12-18] MEDS: DOCUSATE SODIUM 100 MG (COLACE) CAP PO SCH (21:16)
[2017-12-18] MEDS: inSUlin DETERMIR 1 UNIT/0.01 ML (LEVEMIR) CHARGE PER UNIT SQ SCH (21:17)
[2017-12-19 00:35] VITALS: BP 123/58
[2017-12-19] MEDS: RT-ALBUTEROL/IPRATROPIUM 3 ML (DUONEB) VIAL INH SCH ×3 (01:30→14:56)
[2017-12-19 04:51] VITALS: BP 126/59
[2017-12-19 05:40] LABS: BASOPHILS # (AUTO) 0.1 10^3/uL (0.0-0.1); BASOPHILS % (AUTO) 0 % (0-10); EOSINOPHILS % (AUTO) 0 % (0-10); HEMATOCRIT 31 % (40-54); HEMOGLOBIN 10.6 G/DL (13.3-17.7); LYMPHOCYTES # (AUTO) 1.6 X 10^3 (1.0-4.0); LYMPHOCYTES % (AUTO) 5 % (12-44); MEAN CORPUSCULAR HEMOGLOBIN 29 PG (25-34); MEAN CORPUSCULAR HGB CONC 35 G/DL (32-36); MEAN CORPUSCULAR VOLUME 85 FL (80-99); MEAN PLATELET VOLUME 11.1 FL (7.4-10.4); MONOCYTES # (AUTO) 8.5 X 10^3 (0.0-1.0); MONOCYTES % (AUTO) 25 % (0-12); NEUTROPHILS # (AUTO) 24.2 X 10^3 (1.8-7.8); NEUTROPHILS % (AUTO) 71 % (42-75); PLATELET COUNT 399 10^3/uL (130-400); RED CELL DISTRIBUTION WIDTH 14.5 % (10.0-14.5)
[2017-12-19] MEDS: PIPERACILLIN/TAZO 3.375 GM/D5W 100 ML IV SCH ×4 (05:43→14:56)
[2017-12-19] MEDS: inSUlin ASPART (NovoLOG) 1 UNIT/0.01 ML (CHARGE PER UNIT) SC SCH ×3 (05:49→15:17)
[2017-12-19] MEDS: HYDROcodone/APAP 5 MG/325 MG (LORTAB) TAB PO PRN ×2 (05:49→12:29)
[2017-12-19 05:54] LABS: WHITE BLOOD COUNT 34.3 10^3/uL (4.3-11.0)
[2017-12-19 06:01] LABS: ALANINE AMINOTRANSFERASE 6 U/L (0-55); ALBUMIN 3.1 GM/DL (3.2-4.5); ALKALINE PHOSPHATASE 68 U/L (40-136); BILIRUBIN,TOTAL 0.4 MG/DL (0.1-1.0); BUN/CREATININE RATIO 21; CALCIUM 8.7 MG/DL (8.5-10.1); CARBON DIOXIDE 22 MMOL/L (21-32); CHLORIDE 102 MMOL/L (98-107); CREATININE SERUM 0.92 MG/DL (0.60-1.30); GFR ESTIMATED > 60; GLUCOSE 265 MG/DL (70-105); POTASSIUM 4.3 MMOL/L (3.6-5.0); SODIUM 135 MMOL/L (135-145)
[2017-12-19] MEDS ORDERED: GLIMEPIRIDE 4 MG (AMARYL) TAB PO SCH (06:30)
[2017-12-19 08:14] VITALS: BP 116/58
[2017-12-19] MEDS: DEXAMETHASONE 4 MG/ML SDV (DECADRON) IV SCH (08:49)
[2017-12-19] MEDS: DOCUSATE SODIUM 100 MG (COLACE) CAP PO SCH (08:51)
[2017-12-19] MEDS: inSUlin DETERMIR 1 UNIT/0.01 ML (LEVEMIR) CHARGE PER UNIT SQ SCH (08:51)
[2017-12-19] MEDS ORDERED: LORATADINE (CLARITIN) 10 MG TAB PO SCH (09:00)
[2017-12-19] MEDS ORDERED: FLUTICASONE NASAL SPRAY (FLONASE) 16 GM BTL NS SCH (09:00)
[2017-12-19] MEDS: NS IV 1000 ML 1,000 ML IV SCH (09:01)
[2017-12-19] MEDS ORDERED: PATIENT MAY USE OWN MED,SINGLE MED PO SCH (09:15)
--- NOTE | 2017-12-19 09:55 | Pulmonary Progress Note ---
Subjective Time Seen by Provider: 09:55 Subjective/Events-last exam PT appears to be doing better. NO productive cough Focused Exam Lactate Level 12/17/17 13:30: Lactic Acid Level 1.70 Exam Exam Vital Signs Date Time Temp Pulse Resp B/P (MAP) Pulse Ox O2 Delivery O2 Flow Rate FiO2 12/19/17 08:28 98 Nasal Cannula 4.00 12/19/17 08:14 98.9 84 18 116/58 (77) 99 Nasal Cannula 4.00 12/19/17 04:51 98.1 91 19 126/59 (81) 98 Nasal Cannula 4.00 12/19/17 01:30 95 Nasal Cannula 4.00 12/19/17 00:35 97.6 94 20 123/58 (79) 98 Nasal Cannula 4.00 12/18/17 21:24 Nasal Cannula 4.00 12/18/17 20:21 95 Nasal Cannula 4.00 12/18/17 19:55 98.9 90 20 121/56 (77) 97 Nasal Cannula 4.00 12/18/17 15:58 100.0 12/18/17 15:35 100.2 105 20 160/69 (99) 92 Nasal Cannula 4.00 12/18/17 15:24 92 Nasal Cannula 4.00 12/18/17 12:00 98.2 91 18 145/67 (93) 92 Nasal Cannula 4.00 I & O 12/19/17 07:00 Intake Total 1280 ml Balance 1280 ml General Appearance: No Apparent Distress, WD/WN, Chronically ill HEENT: PERRL/EOMI, Normal ENT Inspection, Pharynx Normal Neck: Full Range of Motion, Normal Inspection, Non Tender, Supple, Carotid Bruit Respiratory: Chest Non Tender, No Accessory Muscle Use, No Respiratory Distress , Crackles, Decreased Breath Sounds, Wheezing Cardiovascular: Regular Rate, Rhythm, No Edema, No Gallop, No JVD, No Murmur, Normal Peripheral Pulses Capillary Refill: Less Than 3 Seconds Gastrointestinal: non tender, soft Extremity: Normal Capillary Refill, Normal Inspection, Normal Range of Motion, Non Tender, No Calf Tenderness, No Pedal Edema Neurologic/Psychiatric: Alert, Oriented x3, No Motor/Sensory Deficits, Normal Mood/Affect Skin: Normal Color, Warm/Dry Lymphatic: No Adenopathy Results Lab Laboratory Tests 12/17/17 13:30 12/18/17 04:48 12/19/17 05:25 Assessment/Plan Assessment/Plan Right hilar mass with MLA - ? post obstructive pneumonia - doubt -Will plan for bronchoscopy with EBUS on Tuesday AM -Has been on Zosyn since admission Hypoxemia - currently on 4 liters of oxygen -pt will need home oxygen qualification Leukocytosis probably secondary to lymphoma -s/p bone marrow bx Will f/u with pt 1 wk after procedure. I discussed patient extensively with Dr. Scott, and endoscopy. Bronch is scheduled for Tuesday . I ok with patient's discharge and can do procedure as out patient. 30 min spent with patient, family and medical staff discussing details of plan of care. All questions answered. SCOTTIE TOMLIN DO Dec 19, 2017 09:55
[2017-12-19 12:00] VITALS: BP 132/62
--- NOTE | 2017-12-19 12:11 | Progress Note-Hospitalist ---
Progress Note Progress Notes/Assess & Plan Date Seen 12/19/17 Time Seen by Provider: 12:04 Assessment & Plan The patient is a 77-year-old white male who was admitted from the emergency room. The prompting complaint was increasing shortness of breath and weakness. It is known that he was discovered as an outpatient to have an elevated white blood count. He was referred to Dr. Wilkinson who performed a bone marrow biopsy. That and report is not available and is consistent with myelomonocytic leukemia. By the constancy of the white blood count at 35,000 I would guess this to be chronic. The bigger concern is the hilar mass seen on the CT scan of the chest. This is noted beginning just above the bifurcation of the trachea. There is a considerable mass noted especially beginning at the eve. This extends downward to just above the heart itself. Even at the level of the heart it appears that there is tumor mass in the prevertebral area I have discussed this with Dr. Dumont and he is planning a biopsy procedure for Tuesday. The CT scan was shown first to the patient and his and then his daughter and granddaughter arrived and as the daughter is Dr. Wilkins's nurse these were reviewed with her as well. Discussion ensued. Dr. Wilkinson is out of town until Tuesday of next week. I do not believe there is any solid evidence for a pneumonia and will discontinue the Decadron and the antibiotics. Dr. Dumont and I have discussed and it would be reasonable for the patient to be dismissed and return on Tuesday for his outpatient biopsy. It appears he will need home oxygen. He also complains of left shoulder pain which he relates to an old rotator cuff injury. His brought up the issue of back pain which is suffered for some time. Given the position of the chest tumor this may be related Physical exam: The patient is alert and oriented. He moves rather stiffly and slowly. He gives deference to the left arm and shoulder. Lungs show an inspiratory rhonchus. CV is regular. Impression: Myelomonocytic leukemia, likely chronic. 2.mass right lung and hilum. 3.dyspnea. Plan: Evaluate for home O2. Comment: 45 minutes was allotted for the viewing of the CT scans and discussion with the patient and family Focused Exam Lactate Level 12/17/17 13:30: Lactic Acid Level 1.70 SADAF CAMPBELL MD Dec 19, 2017 12:11
--- NOTE | 2017-12-19 14:58 | Discharge Instructions ---
Discharge Instructions Patient Instructions Patient Instructions: Medications as listed on the discharge sequence. It is my understanding YOU have hydrocodone 7.5/acetaminophen 325 tablets at home. For the purpose of pain relief break them in half and add an acetaminophen 325 or 500 mg tablet. Zofran has been provided to curb nausea if required. Return to The [facility] For: You are to have an outpatient bronchoscopy and lung biopsy on Tuesday performed by Dr. Dumont. He will provide the instructions. Activity & Diet Discharge Diet: No Restrictions, ADA Diet Activity as Tolerated: Yes SADAF CAMPBELL MD Dec 19, 2017 14:58
--- NOTE | 2018-01-03 16:24 | Physician Query-Final Dx ---
Final Diagnosis Give Final Diagnosis Please give Final Diagnosis WM BETTS Jan 03, 2018 16:24
--- NOTE | 2018-01-18 14:46 | Short Stay Summary-Hospitalist ---
Short Stay Diagnosis D/C Date Dec 19, 2017 at 17:37 1.right middle lobe pneumonia. 2.right lung mass suspicious of carcinoma. 3.diabetes Clinical Quality Measures DVT/VTE Risk/Contraindication: Risk Factor Score Per Nursin RFS Level Per Nursing on Admit: 3=High SADAF CAMPBELL MD Jan 18, 2018 14:46
== END 2017-12-19 17:37 | disposition home or self-care (01) | DRG 194 ==
LOC: EDUNIT# 13:17 → ER 13:20 → 4TH 15:35
PROVIDERS: ADMIT Internal Medicine; ATTEND Internal Medicine
DX: J18.9 Pneumonia, unspecified organism (principal); E87.1 Hypo-osmolality and hyponatremia; C92.00 Acute myeloblastic leukemia, not having achieved remission; R91.1 Solitary pulmonary nodule; D72.829 Elevated white blood cell count, unspecified; E11.9 Type 2 diabetes mellitus without complications; D64.9 Anemia, unspecified; M75.112 Incomplete rotator cuff tear or rupture of left shoulder, not specified as traumatic; D47.3 Essential (hemorrhagic) thrombocythemia; R09.02 Hypoxemia; E78.00 Pure hypercholesterolemia, unspecified; Z87.891 Personal history of nicotine dependence; Z79.4 Long term (current) use of insulin
CPT/HCPCS: 36415; 36600; 71045; 71275; 80053; 82805; 82962; 83605; 84484; 85007; 85025; 85027; 85379; 85610; 85730; 87040; 93005; 94640; 94664; 94760; 94761; 96365; 96375

== ENCOUNTER 2017-12-22 05:49 | Outpatient (CLI) | payer MEDICARE ==
[~2017-12-22] VITALS: Ht 167.6 cm; Wt 68.2 kg
[~2017-12-22 05:49] MED LIST: CETI10TA20 PO; EYEL1TOW2 TP; FLUT16SP22; GLIM4TAB PO; INSU100I10 SQ; KETO10TA PO; MELO15TA39; METF500T5 PO; ONDA4TAB11 PO; PIOG45TA65 PO; PROP1DRO7 OU; SIMV40TA4 PO; TRAM50TA2
== END 2017-12-22 12:38 ==
LOC: PREOP 05:49
PROVIDERS: ATTEND Internal Medicine Critical Care Medicine
DX: Z01.818 Encounter for other preprocedural examination (principal)

== ENCOUNTER 2017-12-23 06:12 | Day surgery (SDC) | payer MEDICARE ==
[~2017-12-23] VITALS: Ht 167.6 cm; Wt 68.2 kg
[2017-12-23] MEDS ORDERED: LIDOCAINE 4% INJ (XYLOCAINE) 5ML AMP INJ ONE (06:13)
[2017-12-23] MEDS ORDERED: LIDOCAINE PF 1% 2 ML AMP INJ ONE (06:13)
[2017-12-23] MEDS ORDERED: LACTATED RINGERS 1,000 ML IV ONE (06:32)
[2017-12-23] MEDS ORDERED: LACTATED RINGERS 1,000 ML IV STA (06:53)
[2017-12-23 07:08] VITALS: BP 142/77
[2017-12-23] MEDS ORDERED: proPOfol 200 MG/20 ML (DIPRIVAN) VIAL IV ONE (07:12)
[2017-12-23] MEDS ORDERED: fentaNYL INJECTION 100 MCG/2 ML AMP ONE (07:12)
[2017-12-23] MEDS ORDERED: ROCURONIUM 10 MG/ML 5 ML SYRINGE IV ONE (07:13)
[2017-12-23] MEDS ORDERED: MIDAZOLAM 2 MG/2 ML (VERSED) VIAL ONE (07:13)
[2017-12-23] MEDS ORDERED: KETOROLAC 30 MG/ML VIAL ONE (07:13)
[2017-12-23] MEDS ORDERED: LIDOCAINE PF 2% 5 ML (XYLOCAINE) VIAL ONE (07:17)
[2017-12-23] MEDS ORDERED: SEVOFLURANE (ULTANE) 15 ML INHAL SOLN ONE (08:33)
--- NOTE | 2017-12-23 09:11 | Progress Note-Pre Operative ---
Pre-Operative Progress Note H&P Reviewed The H&P was reviewed, patient examined and no changes noted. Time Seen by Provider: 07:00 Date H&P Reviewed: Dec 23, 2017 Time H&P Reviewed: 07:00 Pre-Operative Diagnosis: lung mass SCOTTIE TOMLIN DO Dec 23, 2017 09:11
--- NOTE | 2017-12-23 09:14 | Pulmonary Procedures ---
Pulmonary Procedures Date of Procedure Date of Service: Dec 23, 2017 Bronch Bronchoscopy with BAL, bronchial wash transbronchial forcep bx, brushes, EBUS with bx of station 10R lymph nodes Preop DX: mediastinal lymphadenopathy with lung mass PostOP DX: PT has very irritated airways especially RUL no solid mass found Complications: None Pt was sedated per anesthesia. Bronchoscopy was advanced through the ET tube and an anatomical undertaken down to the segmental bronchi bilaterally. Very irritated airways especially RUL no solid mass found . Bronchoscopy with BAL, bronchial wash transbronchial forcep bx, brushes, EBUS with bx of station 10R lymph nodes sampled via needle bx under US guidance. Pt tolerated procedure well. No complications noted. SCOTTIE TOMLIN DO Dec 23, 2017 09:14
--- NOTE | 2017-12-23 09:20 | Anesthesia-General Post-Op ---
General Patient Condition Mental Status/LOC: Same as Preop Cardiovascular: Satisfactory Nausea/Vomiting: Absent Respiratory: Satisfactory Pain: Controlled Complications: Absent Post Op Complications Complications None Follow Up Care/Instructions Patient Instructions None needed. Anesthesia/Patient Condition Patient Condition Patient is doing well, no complaints, stable vital signs, no apparent adverse anesthesia problems. No complications reported per nursing. EMANUEL DONOHUE CRNA Dec 23, 2017 09:20
--- NOTE | 2017-12-23 09:20 | Diagnostic Imaging Report ---
Indication: Status post bronchoscopy. Time of exam: 8:57 AM Correlation is made with prior study from 12/18/2017. There has been increase in a right perihilar consolidation when compared with exam 5 days earlier. Left lung is clear. No pneumothorax is seen status post bronchoscopy. No pleural fluid is seen. Impression: Increasing right perihilar consolidation since the exam from 12/18/2017. No pneumothorax is identified Dictated by: Dictated on workstation # [id number]
[2017-12-23 09:25] VITALS: BP 121/58
[2017-12-23 10:00] VITALS: BP 140/77
[2017-12-23 10:25] VITALS: BP 140/77
--- NOTE | 2017-12-23 12:07 | Diagnostic Imaging Report ---
Indication: Fluoroscopy for bronchoscopy. Fluoroscopy was provided for Dr. Dumont during bronchoscopy. 14 seconds of fluoroscopy was utilized. Impression: Fluoroscopy for bronchoscopy. Dictated by: Dictated on workstation # [id number]
== END 2017-12-23 10:25 | disposition home or self-care (01) ==
LOC: ENDO 06:12
PROVIDERS: ATTEND Internal Medicine Critical Care Medicine
DX: C34.11 Malignant neoplasm of upper lobe, right bronchus or lung (principal); C77.1 Secondary and unspecified malignant neoplasm of intrathoracic lymph nodes; E11.9 Type 2 diabetes mellitus without complications; Z87.891 Personal history of nicotine dependence; Z79.4 Long term (current) use of insulin; Z79.899 Other long term (current) drug therapy
CPT/HCPCS: 71045; 87070; 87101; 87116; 87205; 94640

== ENCOUNTER 2017-12-28 12:13 | Emergency (ER) | payer MEDICARE ==
[~2017-12-28] VITALS: Ht 167.6 cm; Wt 69.4 kg
[2017-12-28] MEDS ORDERED: LACTATED RINGERS 1,000 ML IV ONE ×2 (12:55→14:06)
[2017-12-28] MEDS ORDERED: ONDANSETRON 4 MG/2 ML (SDV) Z0FRAN IVP ONE ×3 (13:00→16:15)
[2017-12-28 13:04] LABS: HEMATOCRIT 33 % (40-54); HEMOGLOBIN 11.4 G/DL (13.3-17.7); MEAN CORPUSCULAR HEMOGLOBIN 29 PG (25-34); MEAN CORPUSCULAR HGB CONC 35 G/DL (32-36); MEAN CORPUSCULAR VOLUME 85 FL (80-99); MEAN PLATELET VOLUME 10.8 FL (7.4-10.4); PLATELET COUNT 435 10^3/uL (130-400); RED BLOOD COUNT 3.88 10^6/uL (4.35-5.85); RED CELL DISTRIBUTION WIDTH 14.6 % (10.0-14.5)
[2017-12-28 13:07] LABS: WHITE BLOOD COUNT 45.1 10^3/uL (4.3-11.0)
--- NOTE | 2017-12-28 13:10 | ED GI ---
General Chief Complaint: Abdominal/GI Problems Stated Complaint: POSS BOWEL OBS,VOMITING FOUL LIQUID Source of Information: Patient (LIMITED HISTORIAN), Family (DAUGHTER GIVES MOST INFORMATION ) History of Present Illness Date Seen by Provider: Dec 28, 2017 Time Seen by Provider: 12:55 Initial Comments PT ARRIVES VIA POV FROM HOME WITH DAUGHTER PT HAS VOMITED X 2 TODAY--VERY FOUL ODOR, BROWN LIQUID HAD DIFFUSE ABDOMINAL PAIN THIS AM, IS GONE AFTER HE VOMITED PT HAS NOT HAD A BM IN 3 DAYS PT HAS ONGOING ISSUES WITH CONSTIPATION, BUT ALWAYS DRINKS PRUNE JUICE EVERY DAY AND IT HAS NOT BEEN A PROBLEM PT TRIED MIRALAX YESTERDAY WITHOUT RELIEF PT HAS BEEN ON HYDROCODONE FOR 2-3 WEEKS FOR LEFT TORN ROTATOR CUFF 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 ADMITTED 12/17-12/19. HAD BRONCHOSCOPY 12/23/17--PATHOLOGY RESULTS PENDING WAS SENT HOME ON OXYGEN DAUGHTER JUST GOT BACK FROM 'S APPOINTMENT FOR , AND SHE WAS DX WITH PNEUMONIA AND UTI TODAY PCP: DR. DOHERTY ONCOLOGIST: DR. ELIAS Allergies and Home Medications Allergies Coded Allergies: No Known Drug Allergies (Unverified , 12/17/17) Home Medications Albuterol Sulfate 2.5 Mg/3 Ml Vial.neb, 2.5 MG IH Q4H PRN for SHORTNESS OF BREATH Prescribed by: AMY NICHOLE on 12/31/17 0607 Cetirizine HCl 10 Mg Tablet, 10 MG PO DAILY, (Reported) Fluticasone Propionate 16 Gm [place].susp, 2 SPRAYS NA DAILY, (Reported) Glimepiride 4 Mg Tablet, 4 MG PO DAILY, (Reported) Insulin Glargine,Hum.rec.anlog 100 Unit/1 Ml Insuln.pen, 12 UNITS SQ BID, ( Reported) Ketorolac Tromethamine 10 Mg Tablet, 10 MG PO Q6H PRN for PAIN-MILD TO MODERATE, (Reported) Metformin HCl 500 Mg Tablet, 1,000 MG PO BID, (Reported) Pioglitazone HCl 45 Mg Tablet, 45 MG PO DAILY, (Reported) Propylene Glycol/Peg 400/Pf 1 Each Droperette, 1 EACH OU DAILY PRN for DRY EYES, (Reported) Scopolamine 1 Each Patch.td72, 1 EACH TD Q72 HOURS Prescribed by: SLIME DORMAN on 12/28/17 1608 Simvastatin 40 Mg Tablet, 40 MG PO HS, (Reported) Patient Home Medication List Home Medication List Reviewed: Yes Review of Systems Constitutional: see HPI, malaise, weakness EENTM: No Symptoms Reported Respiratory: See HPI Cardiovascular: No Symptoms Reported; Denies Chest Pain Gastrointestinal: See HPI, Abdominal Pain, Constipated, Nausea, Poor Appetite, Poor Fluid Intake, Vomiting Genitourinary: No Symptoms Reported Musculoskeletal: see HPI Skin: no symptoms reported Psychiatric/Neurological: No Symptoms Reported Endocrine: No Symptoms Reported, Other (PT DOES NOT REMEMBER IF HE TOOK HIS INSULIN THIS MORNING , BUT DID NOT TAKE ANY ORAL MEDICATIONS TODAY) Hematologic/Lymphatic: See HPI Past Zbihpfg-Lituvt-Hhvgpj Hx Patient Social History Type Used: Cigarettes Former Smoker, Quit: Jun 20, 1997 Recent Foreign Travel: No Contact w/Someone Who Travel: No Recent Hopitalizations: No Immunizations Up To Date Tetanus Booster (TDap): Unknown Seasonal Allergies Seasonal Allergies: Yes Past Medical History Surgeries: No Respiratory: Yes (LUNG MASS) Pneumonia Currently Using CPAP: No Currently Using BIPAP: No Cardiac: Yes High Cholesterol Neurological: No Reproductive Disorders: No Sexually Transmitted Disease: No HIV/AIDS: No Genitourinary: No Gastrointestinal: No Chronic Constipation Musculoskeletal: Yes (CURRENTLY HAS TORN LEFT ROTAR CUFF) Endocrine: Yes (DM TYPE 2) Diabetes, Insulin dep HEENT: No Cancer: Yes (JUST DX 12/27/17 ) Leukemia Did You Recieve Any Treatments: No Psychosocial: No Integumentary: No Blood Disorders: Yes (LEUKEMIA DX 12/27/17) Family Medical History Diabetes mellitus 19 FATHER FH: colon cancer 19 MOTHER Myocardial infarction 19 FATHER Diabetes Physical Exam Vital Signs Capillary Refill : Height/Weight/BMI Height: 5'6.00" Weight: 150lbs.7.0oz.68.319420sk; 24.3 BMI Method:Stated General Appearance: other (FLAT AFFECT. LAYING QUIETLY, DOES NOT APPEAR TO BE IN ANY DISCOMFORT OR DISTRESS. 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 tested, no motor/sensory deficits, alert, oriented x 3 Skin: normal color, warm/dry Progress/Results/Core Measures Results/Orders Lab Results Laboratory Tests Test 12/28/17 12:48 12/28/17 15:17 Range/Units White Blood Count 45.1 *H 4.3-11.0 10^3/uL Red Blood Count 3.88 L 4.35-5.85 10^6/uL Hemoglobin 11.4 L 13.3-17.7 G/DL Hematocrit 33 L 40-54 % Mean Corpuscular Volume 85 80-99 FL Mean Corpuscular Hemoglobin 29 25-34 PG Mean Corpuscular Hemoglobin Concent 35 32-36 G/DL Red Cell Distribution Width 14.6 H 10.0-14.5 % Platelet Count 435 H 130-400 10^3/uL Mean Platelet Volume 10.8 H 7.4-10.4 FL Neutrophils (%) (Auto) 42-75 % Lymphocytes (%) (Auto) 12-44 % Monocytes (%) (Auto) 0-12 % Eosinophils (%) (Auto) 0-10 % Basophils (%) (Auto) 0-10 % Neutrophils # (Auto) 1.8-7.8 X 10^3 Lymphocytes # (Auto) 1.0-4.0 X 10^3 Monocytes # (Auto) 0.0-1.0 X 10^3 Eosinophils # (Auto) 0.0-0.3 10^3/uL Basophils # (Auto) 0.0-0.1 10^3/uL Neutrophils % (Manual) 58 % Lymphocytes % (Manual) 6 % Monocytes % (Manual) 25 % Eosinophils % (Manual) 0 % Basophils % (Manual) 0 % Metamyelocytes % 1 % Myelocytes % 2 % Band Neutrophils 6 % Hypersegmented Neutrophils SLIGHT Reactive Lymphocytes 2 % Blood Morphology Comment NORMAL Sodium Level 135 135-145 MMOL/L Potassium Level 4.2 3.6-5.0 MMOL/L Chloride Level 93 L 98-107 MMOL/L Carbon Dioxide Level 28 21-32 MMOL/L Anion Gap 14 5-14 MMOL/L Blood Urea Nitrogen 14 7-18 MG/DL Creatinine 0.85 0.60-1.30 MG/DL Estimat Glomerular Filtration Rate > 60 BUN/Creatinine Ratio 16 Glucose Level 217 H 70-105 MG/DL Calcium Level 9.2 8.5-10.1 MG/DL Magnesium Level 1.3 L 1.8-2.4 MG/DL Total Bilirubin 0.5 0.1-1.0 MG/DL Aspartate Amino Transf (AST/SGOT) 31 5-34 U/L Alanine Aminotransferase (ALT/SGPT) 9 0-55 U/L Alkaline Phosphatase 91 40-136 U/L Total Protein 7.1 6.4-8.2 GM/DL Albumin 3.3 3.2-4.5 GM/DL Amylase Level 30 25-125 U/L Lipase 8 8-78 U/L Urine Color YELLOW Urine Clarity CLEAR Urine pH 6 5-9 Urine Specific [place] 1.020 1.016-1.022 Urine Protein 2+ H NEGATIVE Urine Glucose (UA) 4+ H NEGATIVE Urine Ketones 3+ H NEGATIVE Urine Nitrite NEGATIVE NEGATIVE Urine Bilirubin NEGATIVE NEGATIVE Urine Urobilinogen NORMAL NORMAL MG/DL Urine Leukocyte Esterase NEGATIVE NEGATIVE Urine RBC (Auto) 1+ H NEGATIVE Urine RBC NONE /HPF Urine WBC 0-2 /HPF Urine Squamous Epithelial Cells 0-2 /HPF Urine Renal Epithelial Cells NONE /HPF Urine Crystals NONE /LPF Urine Bacteria FEW H /HPF Urine Casts PRESENT /LPF Urine Hyaline Casts 10-25 H /LPF Urine Granular Casts 0-2 H /LPF Urine Mucus NEGATIVE /LPF Urine Culture Indicated NO My Orders Orders - SLIME DORMAN DO Saline Lock/Iv-Start (12/28/17 12:55) Monitor-Rhythm Ecg Trace Only (12/28/17 12:55) Amylase (12/28/17 12:55) Cbc With Automated Diff (12/28/17 12:55) Comprehensive Metabolic Panel (12/28/17 12:55) Lipase (12/28/17 12:55) Magnesium (12/28/17 12:55) Ua Culture If Indicated (12/28/17 12:55) Acute Abd Series (12/28/17 12:55) Ct Abdomen/Pelvis Wo (12/28/17 12:55) Saline Lock/Iv-Start (12/28/17 12:55) Lactated Ringers (Lr 1000 Ml Iv Solution (12/28/17 12:55) Ondansetron Injection (Zofran Injectio (12/28/17 13:00) Manual Differential (12/28/17 12:48) Ondansetron Injection (Zofran Injectio (12/28/17 14:00) Pantoprazole Injection (Protonix Injecti (12/28/17 14:00) Saline Lock/Iv-Start (12/28/17 14:06) Lactated Ringers (Lr 1000 Ml Iv Solution (12/28/17 14:06) Scopolamine Patch (Transderm-Scop Patch) (12/28/17 14:15) Pantoprazole Injection (Protonix Injecti (12/28/17 14:05) Albuterol/Ipra Inhalation Soln (Duoneb I (12/28/17 14:30) Rt Request For Service (12/28/17 14:30) Svn Small Volume Nebulizer (12/28/17 14:30) Ondansetron Injection (Zofran Injectio (12/28/17 16:15) Iv Push Manufacturing Engineer Supervisor Ed (12/28/17 ) Medications Given in ED Vital Signs/I&O Progress Progress Note : Progress Note SYMPTOMS IMPROVED AT DISMISSAL Diagnostic Imaging Comments CT ABDOMEN/PELVIS--BILATERAL ADRENAL MASSES, 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 PER RADIOLOGIST REPORT @ 1350 ACUTE ABDOMEN XRAYS--CONSTIPATION, RIGHT HILAR MASS WITH POST OBSTRUCTIVE CHANGES, RIGHT PLEURAL EFFUSION--PER RADIOLOGIST REPORT @ 1427 Reviewed: Reviewed by Me Departure Impression Primary Impression: Nausea & vomiting Additional Impressions: CONSTIPATION/OBSTIPATION RECENT DX OF LEUKEMIA RECENT DX OF LUNG MASS Disposition: 01 HOME, SELF-CARE Condition: Improved Departure-Patient Inst. Referrals: OLAMIDE DOHERTY MD (PCP/Family) Primary Care Physician Patient Instructions: Constipation, Adult (DC), Nausea and Vomiting, Adult (DC) Add. Discharge Instructions: CLEAR LIQUIDS, SIPS AT A TIME--WATER, BROTH, JELLO, GATORADE NO FOOD UNTIL YOU HAVE HAD A BM, THEN YOU MAY START A BRATS DIET--BANANAS, RICE , APPLESAUCE, TOAST, SALTINES TAKE MIRALAX EVERY 1-2 HOURS UNTIL YOU HAVE CLEARED YOUR BOWELS, THEN USE IT DAILY CONTINUE YOUR REGULAR MEDICATIONS PRESCRIBED FOLLOW UP WITH YOUR DR TOMORROW IF NO BETTER, RETURN TO ER IF WORSE FOLLOW UP WITH OUTPATIENT TESTS AND FOLLOW UP APPOINTMENTS SCHEDULED All discharge instructions reviewed with patient and/or family. Voiced understanding. Scripts Scopolamine (Transderm-Scop) 1 Each Patch.td72 1 EACH TD Q72 HOURS for Dizziness, #3 PATCH Prov: SLIME DORMAN DO 12/28/17 SLIME DORMAN DO Dec 28, 2017 13:10
[2017-12-28 13:15] LABS: ALANINE AMINOTRANSFERASE 9 U/L (0-55); ALBUMIN 3.3 GM/DL (3.2-4.5); ALKALINE PHOSPHATASE 91 U/L (40-136); AMYLASE 30 U/L (25-125); BILIRUBIN,TOTAL 0.5 MG/DL (0.1-1.0); BUN/CREATININE RATIO 16; CALCIUM 9.2 MG/DL (8.5-10.1); CARBON DIOXIDE 28 MMOL/L (21-32); CHLORIDE 93 MMOL/L (98-107); CREATININE SERUM 0.85 MG/DL (0.60-1.30); GFR ESTIMATED > 60; GLUCOSE 217 MG/DL (70-105); LIPASE 8 U/L (8-78); MAGNESIUM 1.3 MG/DL (1.8-2.4); POTASSIUM 4.2 MMOL/L (3.6-5.0); SODIUM 135 MMOL/L (135-145); TOTAL PROTEIN 7.1 GM/DL (6.4-8.2)
[2017-12-28 13:26] LABS: BAND NEUTROPHILS 6 %; BASOPHILS % (MANUAL) 0 %; EOSINOPHILS % (MANUAL) 0 %; HYPERSEGMENTED NEUT SLIGHT; LYMPHOCYTES % (MANUAL) 6 %; METAMYELOCYTES % 1 %; MONOCYTES % (MANUAL) 25 %; MYELOCYTES % 2 %; NEUTROPHILS % (MANUAL) 58 %; RBC MORPH NORMAL; REACTIVE LYMPHOCYTES 2 %
--- NOTE | 2017-12-28 13:46 | Diagnostic Imaging Report ---
PROCEDURE: CT abdomen and pelvis without contrast. TECHNIQUE: Multiple contiguous axial images were obtained through the abdomen and pelvis without the use of intravenous contrast. INDICATION: Nausea and vomiting. Abdominal pain. COMPARISON: 12/17/2017 FINDINGS: Included portions of the lung bases show partially visualized mild to moderate right-sided pleural effusion. There is expected right basilar atelectasis. CT abdomen: Moderate amount of stool is noted within the ascending and transverse colon. Descending and sigmoid colon are decompressed. Normal appendix cannot be adequately identified, but there is no pericecal inflammation. Small bowel loops are nondistended. Hypodense small cyst is noted within the inferior pole of the right kidney. Otherwise, the kidneys, spleen, pancreas, and liver have a normal CT appearance. Left adrenal mass is identified and demonstrates mixed hyperdensity and hypodensity. It measures 3.3 x 4.7 cm. This is slightly smaller when compared to 5.4 x 3.[address] chest dated 12/17/2017. There has, however, been interval development of mixed density right adrenal mass now measuring 3.4 x 2.5 cm. Findings are felt to be metastatic and related to patient's right hilar mass. There are a few scattered, yet subcentimeter central mesenteric and retroperitoneal lymph nodes, which may be metastatic as well. There is no loculated fluid collection, free fluid, nor free air within the abdomen. There is moderate calcified aortic and arterial atherosclerosis. Bony structures show age-related degenerative changes. No acute osseous abnormalities are identified. CT pelvis: Urinary bladder is unopacified. No calculi are seen within the urinary bladder. There is no loculated fluid collection, free fluid, nor free air within the pelvis. No abnormal lymph nodes are identified. Bony structures show no acute abnormalities. IMPRESSION: 1. Bilateral adrenal masses. Again, adrenal mass on the right is new and mass on the left is decreased in size when compared to prior exam. These are felt to represent metastatic disease related to patient's right pulmonary hilar mass until proven otherwise. 2. Multiple prominent, yet subcentimeter mesenteric and retroperitoneal lymph nodes, which may be metastatic as well. Correlation with PET scan may be of benefit. 3. Partially visualized mild to moderate right-sided pleural effusion. 4. Moderate amount of air and stool within the ascending and transverse colon. Please correlate for underlying constipation. Dictated by: Dictated on workstation # [id number]
[2017-12-28] MEDS ORDERED: PANTOPRAZOLE 40 MG/10 ML (PROTONIX) VIAL IV ONE (14:00)
[2017-12-28] MEDS ORDERED: PANTOPRAZOLE 40 MG/10 ML (PROTONIX) VIAL ONE (14:05)
[2017-12-28] MEDS ORDERED: SCOPOLAMINE 1.5 MG (TRANSDERM-SCOP) PATCH TD ONE (14:15)
--- NOTE | 2017-12-28 14:17 | Diagnostic Imaging Report ---
INDICATION: Vomiting. Possible bowel obstruction. COMPARISON: CT abdomen and pelvis from earlier same day. FINDINGS: Frontal radiographic view of the chest was obtained and again demonstrates right perihilar mass with probable postobstructive atelectasis and/or infiltrate. There has, however, been overall improved aeration of the right lung when compared to 12/23/2017. Left lung remains relatively clear. Small right pleural effusion is noted. There is no large effusion on the left. No pneumothorax is seen on either side. Cardiac silhouette is stable. Supine and upright radiographic views of the abdomen were obtained and show nondistended loops of small bowel. Large amount of air and stool is again noted scattered throughout the colon. There is no large collection of free intraperitoneal air. No abnormal air-fluid levels are seen. No unexpected radiopaque foreign bodies are identified. IMPRESSION: 1. Overall improved aeration of the right lung, but with persistent right perihilar mass and probable postobstructive atelectasis and/or infiltrate. 2. Small right effusion. 3. Large amount of colonic air and stool. Please correlate for underlying constipation. 4. Nonobstructed small bowel gas pattern. Dictated by: Dictated on workstation # [id number]
[2017-12-28] MEDS ORDERED: RT-ALBUTEROL/IPRATROPIUM 3 ML (DUONEB) VIAL INH ONE (14:30)
[2017-12-28] MEDS ORDERED: ONDA4TAB8 PO (15:20)
[2017-12-28] MEDS ORDERED: PANT40TA2 PO (15:20)
[2017-12-28 15:26] LABS: BILIRUBIN,URINE NEGATIVE (NEGATIVE); CLARITY,URINE CLEAR; COLOR,URINE YELLOW; GLUCOSE, URINE (UA) 4+ (NEGATIVE); KETONES,URINE 3+ (NEGATIVE); LEUKOCYTE ESTERASE ,URINE NEGATIVE (NEGATIVE); NITRITE,URINE NEGATIVE (NEGATIVE); PH,URINE 6 (5-9); PROTEIN,URINE 2+ (NEGATIVE); UROBILINOGEN,URINE NORMAL (NORMAL)
[2017-12-28 15:46] LABS: BACTERIA,URINE FEW /HPF; GRANULAR CASTS,URINE 0-2 /LPF; SQUAMOUS EPITHELIAL CELL,UR 0-2 /HPF; WBC,URINE 0-2 /HPF
[2017-12-28] MEDS ORDERED: SCOP1PAT11 TD (16:08)
[2017-12-28 16:26] VITALS: BP 157/81
== END 2017-12-28 16:30 | disposition home or self-care (01) ==
LOC: EDUNIT# 12:13 → ER 12:14
DX: R11.2 Nausea with vomiting, unspecified (principal); K59.00 Constipation, unspecified; E78.00 Pure hypercholesterolemia, unspecified; E11.9 Type 2 diabetes mellitus without complications; Z79.4 Long term (current) use of insulin; Z87.891 Personal history of nicotine dependence; Z85.6 Personal history of leukemia
CPT/HCPCS: 36415; 74022; 74176; 80053; 81000; 82150; 83690; 83735; 85007; 85027; 93041; 94640; 96361; 96374; 96375; 96376

== ENCOUNTER 2017-12-31 03:54 | Emergency (ER) | payer MEDICARE ==
[~2017-12-31] VITALS: Ht 167.6 cm; Wt 70.5 kg
[~2017-12-31 03:54] MED LIST changes: +ONDA4TAB8 PO; +PANT40TA2 PO; +SCOP1PAT11 TD
[2017-12-31 04:52] LABS: BASOPHILS # (AUTO) 0.1 10^3/uL (0.0-0.1); BASOPHILS % (AUTO) 0 % (0-10); EOSINOPHILS # (AUTO) 0.1 10^3/uL (0.0-0.3); EOSINOPHILS % (AUTO) 0 % (0-10); HEMATOCRIT 37 % (40-54); HEMOGLOBIN 12.5 G/DL (13.3-17.7); LYMPHOCYTES # (AUTO) 2.9 X 10^3 (1.0-4.0); LYMPHOCYTES % (AUTO) 7 % (12-44); MEAN CORPUSCULAR HEMOGLOBIN 29 PG (25-34); MEAN CORPUSCULAR HGB CONC 34 G/DL (32-36); MEAN CORPUSCULAR VOLUME 85 FL (80-99); MONOCYTES # (AUTO) 15.6 X 10^3 (0.0-1.0); MONOCYTES % (AUTO) 39 % (0-12); NEUTROPHILS # (AUTO) 21.4 X 10^3 (1.8-7.8); NEUTROPHILS % (AUTO) 53 % (42-75); PLATELET COUNT 450 10^3/uL (130-400); RED BLOOD COUNT 4.29 10^6/uL (4.35-5.85); RED CELL DISTRIBUTION WIDTH 14.6 % (10.0-14.5)
[2017-12-31 04:55] LABS: WHITE BLOOD COUNT 40.1 10^3/uL (4.3-11.0)
[2017-12-31 05:12] LABS: ALANINE AMINOTRANSFERASE 8 U/L (0-55); ALBUMIN 3.2 GM/DL (3.2-4.5); ALKALINE PHOSPHATASE 102 U/L (40-136); BILIRUBIN,TOTAL 0.7 MG/DL (0.1-1.0); BUN/CREATININE RATIO 17; CARBON DIOXIDE 28 MMOL/L (21-32); CHLORIDE 90 MMOL/L (98-107); CREATININE SERUM 0.95 MG/DL (0.60-1.30); GFR ESTIMATED > 60; GLUCOSE 117 MG/DL (70-105); POTASSIUM 3.4 MMOL/L (3.6-5.0); SODIUM 133 MMOL/L (135-145); TOTAL PROTEIN 7.3 GM/DL (6.4-8.2)
[2017-12-31] MEDS ORDERED: ONDA8TAB12 (05:15)
[2017-12-31] MEDS ORDERED: AZIT250T12 (05:15)
[2017-12-31 05:21] LABS: BAND NEUTROPHILS 6 %; LYMPHOCYTES % (MANUAL) 10 %; MONOCYTES % (MANUAL) 32 %; NEUTROPHILS % (MANUAL) 52 %; RBC MORPH NORMAL
[2017-12-31] MEDS ORDERED: RT-ALBUTEROL/IPRATROPIUM 3 ML (DUONEB) VIAL INH ONE (05:30)
[2017-12-31] MEDS ORDERED: fentaNYL INJECTION 100 MCG/2 ML AMP IVP ONE (05:30)
--- NOTE | 2017-12-31 05:56 | ED General ---
General Chief Complaint: Glucose Problems Stated Complaint: LOW BLOOD SUGAR,FALL Nursing Triage Note: EMS arrival of patient report of pt fell out of bed unresponsive. Blood sugar was reported 23 on EMS arrival. Pt is alert and talking after D50 administered Nursing Sepsis Screen: No Definite Risk Source of Information: Patient, Old Records Exam Limitations: No Limitations History of Present Illness Date Seen by Provider: Dec 31, 2017 Time Seen by Provider: 03:46 Initial Comments This 77-year-old gentleman presents to the emergency room via EMS after falling out of his bed and onto some pillows without injury. He was found to be hypoglycemic with a blood sugar of 23. Blood sugar was corrected by EMS with D50. Mental status improved and he is now alert and talkative. Family reports he also had a blood sugar of 40 yesterday and his long-acting insulin dose was reduced from 12 units to 8 units last night. He had hypoglycemia despite reduction in insulin. Patient also takes multiple oral medications for diabetes. He also was recently diagnosed with leukemia. A CT performed on December 28 shows a pleural effusion and a lung mass. He is on oxygen supplementation by nasal cannula. Patient's appetite has been poor and his oral intake has been decreased as a result. Patient's primary care providers Dr. Garcia, his oncologist is Dr. Wilkinson, and his buyer agent is Dr. Dumont. Patient was recently started on antibiotics due to concern for pulmonary infection. He still has one day remaining on his antibiotics. He has been afebrile. Patient is additionally struggling with pain in the left shoulder due to a rotator cuff injury. Allergies and Home Medications Allergies Coded Allergies: No Known Drug Allergies (Unverified , 12/17/17) Home Medications Albuterol Sulfate 2.5 Mg/3 Ml Vial.neb, 2.5 MG IH Q4H PRN for SHORTNESS OF BREATH Prescribed by: AMY NICHOLE on 12/31/17 0607 Cetirizine HCl 10 Mg Tablet, 10 MG PO DAILY, (Reported) Fluticasone Propionate 16 Gm [place].susp, 2 SPRAYS NA DAILY, (Reported) Glimepiride 4 Mg Tablet, 4 MG PO DAILY, (Reported) Insulin Glargine,Hum.rec.anlog 100 Unit/1 Ml Insuln.pen, 12 UNITS SQ BID, ( Reported) Ketorolac Tromethamine 10 Mg Tablet, 10 MG PO Q6H PRN for PAIN-MILD TO MODERATE, (Reported) Metformin HCl 500 Mg Tablet, 1,000 MG PO BID, (Reported) Pioglitazone HCl 45 Mg Tablet, 45 MG PO DAILY, (Reported) Propylene Glycol/Peg 400/Pf 1 Each Droperette, 1 EACH OU DAILY PRN for DRY EYES, (Reported) Scopolamine 1 Each Patch.td72, 1 EACH TD Q72 HOURS Prescribed by: SLIME DORMAN on 12/28/17 1608 Simvastatin 40 Mg Tablet, 40 MG PO HS, (Reported) Patient Home Medication List Home Medication List Reviewed: Yes Review of Systems Constitutional: weakness EENTM: no symptoms reported Respiratory: see HPI Cardiovascular: no symptoms reported Gastrointestinal: see HPI Genitourinary: no symptoms reported Musculoskeletal: no symptoms reported Skin: no symptoms reported Psychiatric/Neurological: See HPI Hematologic/Lymphatic: See HPI Immunological/Allergic: see HPI Past Kzyjhmr-Mgbvmw-Dlzltv Hx Past Med/Social Hx: Reviewed and Corrections made Patient Social History Alcohol Use: Rarely Uses Alcohol Beverage of Choice: Beer Recreational Drug Use: No Type Used: Cigarettes Former Smoker, Quit: Jun 20, 1997 Recent Foreign Travel: No Contact w/Someone Who Travel: No Recent Infectious Disease Expo: No Recent Hopitalizations: No Immunizations Up To Date Tetanus Booster (TDap): Unknown Seasonal Allergies Seasonal Allergies: Yes Past Medical History Surgeries: No Respiratory: Yes (LUNG MASS, pleural effusion) Pneumonia Currently Using CPAP: No Currently Using BIPAP: No Cardiac: Yes High Cholesterol Neurological: No Reproductive Disorders: No Sexually Transmitted Disease: No HIV/AIDS: No Genitourinary: No Gastrointestinal: No Chronic Constipation Musculoskeletal: Yes (currently has torn left rotator cuff) Endocrine: Yes (DM TYPE 2) Diabetes, Insulin dep HEENT: No Cancer: Yes (just dx 12/27/17 ) Leukemia Did You Recieve Any Treatments: No Psychosocial: No Integumentary: No Blood Disorders: Yes (Leukemia dx 12/27/17) Family Medical History Reviewed Nursing Family Hx Diabetes mellitus 19 FATHER FH: colon cancer 19 MOTHER Myocardial infarction 19 FATHER Diabetes Physical Exam Vital Signs Vital Signs - First Documented 12/31/17 03:54 Temp 97.2 Pulse 69 Resp 18 B/P (MAP) 135/78 (97) Pulse Ox 97 O2 Delivery Nasal Cannula O2 Flow Rate 2.00 Capillary Refill : Less Than 3 Seconds Height, Weight, BMI Height: 5'6.00" Weight: 155lbs. 7.0oz. 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-XII Norm as Tested Skin: Normal Color, Warm/Dry Progress/Results/Core Measures Suspected Sepsis Recent Fever Within 48 Hours: No Infection Criteria Present: None New/Unexplained Altered Menta: Yes Sepsis Screen: No Definite Risk SIRS Temperature:97.2 Pulse: 69 Respiratory Rate: 18 Laboratory Tests 12/31/17 04:43: White Blood Count 40.1*H Blood Pressure 135 /78 Mean: 97 Laboratory Tests 12/31/17 04:43: Creatinine 0.95, Platelet Count 450H, Total Bilirubin 0.7 Results/Orders Lab Results Laboratory Tests Test 12/31/17 04:05 12/31/17 04:43 12/31/17 05:45 Range/Units Glucometer 178 H 127 H 70-110 MG/DL White Blood Count 40.1 *H 4.3-11.0 10^3/uL Red Blood Count 4.29 L 4.35-5.85 10^6/uL Hemoglobin 12.5 L 13.3-17.7 G/DL Hematocrit 37 L 40-54 % Mean Corpuscular Volume 85 80-99 FL Mean Corpuscular Hemoglobin 29 25-34 PG Mean Corpuscular Hemoglobin Concent 34 32-36 G/DL Red Cell Distribution Width 14.6 H 10.0-14.5 % Platelet Count 450 H 130-400 10^3/uL Mean Platelet Volume 11.0 H 7.4-10.4 FL Neutrophils (%) (Auto) 53 42-75 % Lymphocytes (%) (Auto) 7 L 12-44 % Monocytes (%) (Auto) 39 H 0-12 % Eosinophils (%) (Auto) 0 0-10 % Basophils (%) (Auto) 0 0-10 % Neutrophils # (Auto) 21.4 H 1.8-7.8 X 10^3 Lymphocytes # (Auto) 2.9 1.0-4.0 X 10^3 Monocytes # (Auto) 15.6 H 0.0-1.0 X 10^3 Eosinophils # (Auto) 0.1 0.0-0.3 10^3/uL Basophils # (Auto) 0.1 0.0-0.1 10^3/uL Neutrophils % (Manual) 52 % Lymphocytes % (Manual) 10 % Monocytes % (Manual) 32 % Band Neutrophils 6 % Blood Morphology Comment NORMAL Sodium Level 133 L 135-145 MMOL/L Potassium Level 3.4 L 3.6-5.0 MMOL/L Chloride Level 90 L 98-107 MMOL/L Carbon Dioxide Level 28 21-32 MMOL/L Anion Gap 15 H 5-14 MMOL/L Blood Urea Nitrogen 16 7-18 MG/DL Creatinine 0.95 0.60-1.30 MG/DL Estimat Glomerular Filtration Rate > 60 BUN/Creatinine Ratio 17 Glucose Level 117 H 70-105 MG/DL Calcium Level 9.0 8.5-10.1 MG/DL Total Bilirubin 0.7 0.1-1.0 MG/DL Aspartate Amino Transf (AST/SGOT) 30 5-34 U/L Alanine Aminotransferase (ALT/SGPT) 8 0-55 U/L Alkaline Phosphatase 102 40-136 U/L Total Protein 7.3 6.4-8.2 GM/DL Albumin 3.2 3.2-4.5 GM/DL My Orders Orders - AMY CHAPMAN MD Cbc With Automated Diff (12/31/17 04:20) Comprehensive Metabolic Panel (12/31/17 04:20) Accucheck Stat ONCE (12/31/17 04:21) Manual Differential (12/31/17 04:43) Accucheck Stat ONCE (12/31/17 05:19) Fentanyl Injection (Sublimaze Injection (12/31/17 05:30) Albuterol/Ipra Inhalation Soln (Duoneb I (12/31/17 05:30) Svn Small Volume Nebulizer (12/31/17 05:26) Incentive Spirometry (Nursing) Q2H (12/31/17 05:26) Medications Given in ED Current Medications Medications Dose Ordered Sig/Teodoro Route Start Time Stop Time Status Last Admin Dose Admin Albuterol/ Ipratropium 3 ml ONCE ONCE INH 12/31/17 05:30 12/31/17 05:31 DC 12/31/17 05:46 3 ML Fentanyl Citrate 50 mcg ONCE ONCE IVP 12/31/17 05:30 12/31/17 05:31 DC 12/31/17 05:46 50 MCG Vital Signs/I&O 12/31/17 12/31/17 12/31/17 03:54 05:46 06:19 Temp 97.2 97.2 Pulse 69 68 Resp 18 18 B/P (MAP) 135/78 (97) 118/62 (97) Pulse Ox 97 98 98 O2 Delivery Nasal Cannula Nasal Cannula Nasal Cannula O2 Flow Rate 2.00 2.00 2.00 Capillary Refill : Less Than 3 Seconds Blood Pressure Mean: 97 Point of Care Testing Finger Stick Blood Glucose: 178 Blood Glucose Action Taken: reported to Progress Note : Progress Note Patient was given juice to drink. His blood sugar remained stable. His mental status improved to baseline. Patient complained of some thick mucus that was difficult to cough up. He was given a DuoNeb treatment which improved his respiratory status. He does not have a nebulizer at home. A prescription for a nebulizer machine and albuterol was provided. Patient was advised to complete his antibiotics. Patient was also advised to discontinue glimepiride and reduce his insulin dose until further evaluation by his primary care provider. Fentanyl was given for the shoulder pain. Departure Impression Primary Impression: Hypoglycemia associated with diabetes Additional Impressions: Wheezing Left shoulder pain Qualified Codes: M25.512 - Pain in left shoulder Disposition: 01 HOME, SELF-CARE Condition: Improved Departure-Patient Inst. Decision time for Depature: 05:51 Referrals: OLAMIDE GARCIA MD (PCP/Family) Primary Care Physician Patient Instructions: HYPOGLYCEMIA Add. Discharge Instructions: Drink plenty of clear liquids and eat a well-balanced diet. Check your blood sugars fasting in the morning and 2 hours after each meal. Present your blood sugars to your primary care provider in follow-up. Please follow-up with your doctor as soon as possible. Exercise deep breathing with your incentive spirometer at least 10 times per hour while awake. Return to care if symptoms worsen. Decrease your Lantus dose to 8 units and stop glimepiride until further discussion with your doctor. Use your nebulizer machine every 4 hours as needed for shortness of air and wheezing. All discharge instructions reviewed with patient and/or family. Voiced understanding. Scripts Albuterol Sulfate (Albuterol Sulfate) 2.5 Mg/3 Ml Vial.neb 2.5 MG IH Q4H PRN for SHORTNESS OF BREATH, #20 EA Prov: AMY CHAPMAN MD 12/31/17 Copy Copies To 1: JESSICA WILKINSON Copies To 2: OLAMIDE GARCIA MD, JOSHUA T MD Dec 31, 2017 05:56
[2017-12-31] MEDS ORDERED: ALBU2.5V4 IH (06:07)
[2017-12-31 06:19] VITALS: BP 118/62
== END 2017-12-31 06:19 | disposition home or self-care (01) ==
LOC: EDUNIT# 03:54 → ER 03:56
DX: E11.649 Type 2 diabetes mellitus with hypoglycemia without coma (principal); M25.512 Pain in left shoulder; R06.2 Wheezing; E78.00 Pure hypercholesterolemia, unspecified; Z87.19 Personal history of other diseases of the digestive system; Z79.4 Long term (current) use of insulin; Z85.6 Personal history of leukemia; Z87.891 Personal history of nicotine dependence
CPT/HCPCS: 36415; 80053; 82962; 85007; 85027; 94640; 94664; 96374; 99283

== ENCOUNTER 2018-01-02 10:44 | Outpatient (RCR) | payer MEDICARE ==
[2017-12-12 13:56] LABS: BASOPHILS # (AUTO) 0.1 10^3/uL (0.0-0.1); BASOPHILS % (AUTO) 0 % (0-10); EOSINOPHILS # (AUTO) 0.1 10^3/uL (0.0-0.3); EOSINOPHILS % (AUTO) 0 % (0-10); HEMATOCRIT 39 % (35-52); HEMOGLOBIN 13.5 G/DL (11.5-16.0); LYMPHOCYTES # (AUTO) 2.1 X 10^3 (1.0-4.0); LYMPHOCYTES % (AUTO) 7 % (12-44); MEAN CORPUSCULAR HEMOGLOBIN 30 PG (25-34); MEAN CORPUSCULAR HGB CONC 35 G/DL (32-36); MEAN CORPUSCULAR VOLUME 85 FL (80-99); MONOCYTES # (AUTO) 13.4 X 10^3 (0.0-1.0); MONOCYTES % (AUTO) 44 % (0-12); NEUTROPHILS % (AUTO) 49 % (42-75); PLATELET COUNT 499 10^3/uL (130-400); RED BLOOD COUNT 4.58 10^6/uL (4.35-5.85); RED CELL DISTRIBUTION WIDTH 14.7 % (10.0-14.5)
[2017-12-12 13:58] LABS: WHITE BLOOD COUNT 30.6 10^3/uL (4.3-11.0)
[2017-12-12 14:16] LABS: ALANINE AMINOTRANSFERASE < 6 U/L (0-55); ALBUMIN 3.8 GM/DL (3.2-4.5); ALKALINE PHOSPHATASE 85 U/L (40-136); BILIRUBIN,TOTAL 0.6 MG/DL (0.1-1.0); BUN/CREATININE RATIO 16; CARBON DIOXIDE 24 MMOL/L (21-32); CHLORIDE 95 MMOL/L (98-107); CREATININE SERUM 0.92 MG/DL (0.60-1.30); GFR ESTIMATED 59; GLUCOSE 372 MG/DL (70-105); POTASSIUM 4.4 MMOL/L (3.6-5.0); SODIUM 130 MMOL/L (135-145); TOTAL PROTEIN 7.7 GM/DL (6.4-8.2)
[2017-12-13 11:17] LABS: ABSOLUTE RETIC # 85 10e9/L (24-90); BASOPHILS # (AUTO) 0.1 10^3/uL (0.0-0.1); BASOPHILS % (AUTO) 0 % (0-10); EOSINOPHILS # (AUTO) 0.1 10^3/uL (0.0-0.3); EOSINOPHILS % (AUTO) 1 % (0-10); HEMATOCRIT 36 % (35-52); HEMOGLOBIN 12.7 G/DL (11.5-16.0); LYMPHOCYTES # (AUTO) 2.9 X 10^3 (1.0-4.0); LYMPHOCYTES % (AUTO) 9 % (12-44); MEAN CORPUSCULAR HEMOGLOBIN 30 PG (25-34); MEAN CORPUSCULAR HGB CONC 35 G/DL (32-36); MEAN CORPUSCULAR VOLUME 85 FL (80-99); MEAN PLATELET VOLUME 11.2 FL (7.4-10.4); MONOCYTES # (AUTO) 12.5 X 10^3 (0.0-1.0); MONOCYTES % (AUTO) 41 % (0-12); NEUTROPHILS # (AUTO) 15.3 X 10^3 (1.8-7.8); NEUTROPHILS % (AUTO) 50 % (42-75); PLATELET COUNT 449 10^3/uL (130-400); RED BLOOD COUNT 4.29 10^6/uL (4.35-5.85); RED CELL DISTRIBUTION WIDTH 14.3 % (10.0-14.5); RETICULOCYTE % 1.97 % (0.50-2.40)
[2017-12-13 11:20] LABS: WHITE BLOOD COUNT 30.9 10^3/uL (4.3-11.0)
[2017-12-13 12:57] LABS: BAND NEUTROPHILS 5 %; BASOPHILS % (MANUAL) 0 %; EOSINOPHILS % (MANUAL) 0 %; LYMPHOCYTES % (MANUAL) 9 %; MONOCYTES % (MANUAL) 32 %; NEUTROPHILS % (MANUAL) 54 %; RBC MORPH NORMAL
[~2018-01-02] VITALS: Ht 166.4 cm; Wt 69.4 kg
[2018-01-04] MEDS ORDERED: NS IV 1000 ML (CANCER CTR) IV SCH (13:45)
[2018-01-04] MEDS ORDERED: ONDANSETRON MDV (CANCER CENTER 16 MG, DEXAMETHASONE INJ (CANCER CTR) 4 MG in NS (IVPB) ... IV SCH (13:45)
[2018-01-04] MEDS ORDERED: NS IV SCH (14:00)
[2018-01-04] MEDS ORDERED: DECITABINE IV SCH (14:00)
[2018-01-09 15:00] LABS: BASOPHILS # (AUTO) 0.1 10^3/uL (0.0-0.1); BASOPHILS % (AUTO) 0 % (0-10); EOSINOPHILS % (AUTO) 0 % (0-10); HEMATOCRIT 31 % (40-54); HEMOGLOBIN 10.4 G/DL (13.3-17.7); LYMPHOCYTES # (AUTO) 2.7 X 10^3 (1.0-4.0); LYMPHOCYTES % (AUTO) 5 % (12-44); MEAN CORPUSCULAR HEMOGLOBIN 29 PG (25-34); MEAN CORPUSCULAR HGB CONC 34 G/DL (32-36); MEAN CORPUSCULAR VOLUME 85 FL (80-99); MEAN PLATELET VOLUME 11.1 FL (7.4-10.4); MONOCYTES % (AUTO) 44 % (0-12); NEUTROPHILS % (AUTO) 51 % (42-75); PLATELET COUNT 378 10^3/uL (130-400); RED CELL DISTRIBUTION WIDTH 14.9 % (10.0-14.5)
[2018-01-09 15:02] LABS: WHITE BLOOD COUNT 58.9 10^3/uL (4.3-11.0)
[2018-01-09 15:18] LABS: ALBUMIN 2.8 GM/DL (3.2-4.5); BILIRUBIN,TOTAL 0.7 MG/DL (0.1-1.0); CALCIUM 9.8 MG/DL (8.5-10.1); CREATININE SERUM 1.91 MG/DL (0.60-1.30); PHOSPHORUS 6.7 MG/DL (2.3-4.7); POTASSIUM 4.9 MMOL/L (3.6-5.0); URIC ACID 5.2 MG/DL (2.6-7.2)
== END 2018-01-09 14:03 | disposition home or self-care (01) ==
LOC: EDSEX → ONC 10:44
PROVIDERS: ATTEND Internal Medicine Hematology & Oncology
DX: D72.821 Monocytosis (symptomatic) (principal)
CPT/HCPCS: 36415; 38222; 80053; 83615; 84100; 84550; 85007; 85025; 85027; 85045; 99213; 99214

== ENCOUNTER → 2018-01-02 | Outpatient (CLI) | payer MEDICARE ==
[~2018-01-02] MED LIST changes: +ALBU2.5V4 IH; +AZIT250T12; +ONDA8TAB12
--- NOTE | 2018-01-02 13:26 | Diagnostic Imaging Report ---
PROCEDURE: US venous upper extremity left. TECHNIQUE: Multiple realtime grayscale images were obtained of left upper extremity in various projections. Duplex Doppler and and color Doppler images were also obtained. INDICATION: Left upper extremity swelling. FINDINGS: The left jugular, subclavian, axillary, brachiocephalic, and basilic veins demonstrate normal response to compression, augmentation and Valsalva. There are no abnormal left upper extremity fluid collections or masses. IMPRESSION: No evidence of deep venous thrombosis in the left upper extremity. Dictated by: Dictated on workstation # [id number]
== END ==
LOC: RAD 12:16
PROVIDERS: ATTEND Internal Medicine Hematology & Oncology
DX: M79.89 Other specified soft tissue disorders (principal); R52 Pain, unspecified
CPT/HCPCS: 99213

== ENCOUNTER → 2018-01-04 | Outpatient (CLI) | payer MEDICARE ==
[~2018-01-04] MED LIST changes: +IOHEXOL 350 MG/ML 100 ML (OMNIPAQUE 350) VIAL IV ONE; +NS 250 ML (IVPB) BAG IV ONE
--- NOTE | 2018-01-04 17:18 | Diagnostic Imaging Report ---
PROCEDURE: CT left upper extremity with and without contrast. TECHNIQUE: Axial images were obtained of the left upper extremity with and without contrast. Reconstructed coronal and sagittal images were performed for review. INDICATION: Lytic lesion of the humerus. COMPARISON: None. FINDINGS: There is abnormal cortical expansion with breakthrough of the mid humerus lateral aspect. There is some soft tissue thickening surrounding the lesion without significant enhancement. Findings are concerning for a neoplastic process. This may be further evaluated with whole body bone scan imaging. Oncology consultation recommended. IMPRESSION: Abnormal lytic process involving the cortex of the mid lateral humerus at approximate measurement of 44 x 11 mm. There is near pathologic fracture at this location. Findings are concerning for a neoplastic process. Dictated by: Dictated on workstation # [id number]
== END ==
LOC: RAD 15:39
PROVIDERS: ATTEND Nurse Practitioner Family
DX: M84.422A Pathological fracture, left humerus, initial encounter for fracture (principal)
CPT/HCPCS: 73202

== ENCOUNTER 2018-01-16 14:00 | Outpatient (RCR) | payer MEDICARE ==
[2018-01-12 13:30] LABS: HEMATOCRIT 29 % (40-54); HEMOGLOBIN 10.3 G/DL (13.3-17.7); MEAN CORPUSCULAR HEMOGLOBIN 29 PG (25-34); MEAN CORPUSCULAR HGB CONC 35 G/DL (32-36); MEAN CORPUSCULAR VOLUME 84 FL (80-99); MEAN PLATELET VOLUME 10.6 FL (7.4-10.4); PLATELET COUNT 256 10^3/uL (130-400); RED BLOOD COUNT 3.52 10^6/uL (4.35-5.85); RED CELL DISTRIBUTION WIDTH 14.7 % (10.0-14.5)
[2018-01-12 13:33] LABS: WHITE BLOOD COUNT 41.8 10^3/uL (4.3-11.0)
[2018-01-12 13:57] LABS: ALBUMIN 2.9 GM/DL (3.2-4.5); BILIRUBIN,TOTAL 0.6 MG/DL (0.1-1.0); CALCIUM 9.2 MG/DL (8.5-10.1); CREATININE SERUM 1.58 MG/DL (0.60-1.30); POTASSIUM 4.4 MMOL/L (3.6-5.0); URIC ACID 4.7 MG/DL (2.6-7.2)
[~2018-01-16 14:00] MED LIST changes: +DECITABINE IV SCH; +FAMOTIDINE 20MG/2ML IV (CANCER CTR) IV SCH; -IOHEXOL 350 MG/ML 100 ML (OMNIPAQUE 350) VIAL IV ONE; +METF-397 PO; -METF500T5 PO; -NS 250 ML (IVPB) BAG IV ONE; +NS IV 1000 ML (CANCER CTR) 1,000 ML ONE; +NS IV 1000 ML (CANCER CTR) IV SCH; +NS IV SCH; +ONDANSETRON MDV (CANCER CENTER 16 MG, DEXAMETHASONE INJ (CANCER CTR) 4 MG in NS (IVPB) ... IV SCH; +SUCRALFATE 1 GM (CARAFATE) TAB PO ONE; +inSUlin (REGULAR) HUMAN 1 UNIT/0.01 ML DOSE CANCER CTR SC ONE
[2018-01-16 14:27] LABS: BASOPHILS # (AUTO) 0.1 10^3/uL (0.0-0.1); BASOPHILS % (AUTO) 0 % (0-10); EOSINOPHILS # (AUTO) 0.1 10^3/uL (0.0-0.3); EOSINOPHILS % (AUTO) 0 % (0-10); HEMATOCRIT 33 % (40-54); HEMOGLOBIN 11.5 G/DL (13.3-17.7); LYMPHOCYTES % (AUTO) 5 % (12-44); MEAN CORPUSCULAR HEMOGLOBIN 29 PG (25-34); MEAN CORPUSCULAR HGB CONC 35 G/DL (32-36); MEAN CORPUSCULAR VOLUME 84 FL (80-99); MEAN PLATELET VOLUME 12.1 FL (7.4-10.4); MONOCYTES % (AUTO) 20 % (0-12); NEUTROPHILS % (AUTO) 75 % (42-75); PLATELET COUNT 125 10^3/uL (130-400); RED BLOOD COUNT 3.93 10^6/uL (4.35-5.85); RED CELL DISTRIBUTION WIDTH 14.9 % (10.0-14.5)
[2018-01-16 14:29] LABS: WHITE BLOOD COUNT 40.1 10^3/uL (4.3-11.0)
[2018-01-16 14:48] LABS: BUN/CREATININE RATIO 33; CALCIUM 9.7 MG/DL (8.5-10.1); CARBON DIOXIDE 24 MMOL/L (21-32); CHLORIDE 88 MMOL/L (98-107); CREATININE SERUM 0.89 MG/DL (0.60-1.30); GFR ESTIMATED > 60; GLUCOSE 323 MG/DL (70-105); POTASSIUM 4.4 MMOL/L (3.6-5.0); SODIUM 128 MMOL/L (135-145); URIC ACID 2.3 MG/DL (2.6-7.2)
== END 2018-01-17 | disposition home or self-care (01) ==
LOC: ONC 14:00
PROVIDERS: ATTEND Internal Medicine Hematology & Oncology
DX: Z51.11 Encounter for antineoplastic chemotherapy (principal); D72.821 Monocytosis (symptomatic); C34.11 Malignant neoplasm of upper lobe, right bronchus or lung; C77.1 Secondary and unspecified malignant neoplasm of intrathoracic lymph nodes
CPT/HCPCS: 36415; 77295; 77300; 77334; 77417; 80048; 80053; 82962; 84550; 85025; 96375; 96413; 99205